=== PATIENT | female | born 1940 | race Caucasian/White ===

== ENCOUNTER 2017-06-26 19:10 | Emergency (ER) | payer MEDICARE, BC ==
[2017-06-26 19:17] VITALS: BP 125/70
--- NOTE | 2017-06-26 20:02 | EDM.PDOC ---
ED HPI GENERAL MEDICAL PROBLEM - General Chief Complaint: Upper Extremity Injury/Pain Stated Complaint: right wrist, elbow, and hip pain Time Seen by Provider: 06/26/17 19:28 Source of Information: Reports: Patient History Limitations: Reports: No Limitations - History of Present Illness INITIAL COMMENTS - FREE TEXT/NARRATIVE: Patient is a 76 year old female who presents to the ER with right wrist, right elbow, and right hip pain following a fall. Patient reports she was having lunch at the [employer] earlier today around 1345. She reached to grab the door and started falling backwards. She reports she landed on her right hip and is unsure how she landed on her right arm. She reports she initially was feeling ok, but throughout the day she had increased pain to her right wrist, prompting her ER visit. She also reported she had some numbness and tingling in her fingers initially. At time of ER presentation, she reports resolution of the numbness and tingling, but does have a "weird" sensation to her finger tips. She denies any dizziness, lightheadedness, or LOC prior to fall. No other associated symptoms. Onset: Today Onset Date: 06/26/17 Onset Time: 13:45 Location: Reports: Upper Extremity, Right, Lower Extremity, Right Severity: Moderate Associated Symptoms: Reports: No Other Symptoms. Denies: Confusion, Chest Pain , Diaphoresis, Fever/Chills, Headaches, Nausea/Vomiting, Rash, Seizure, Shortness of Breath, Syncope, Weakness Right Wrist Pain Score (Numeric/FACES): 7 - Related Data Allergies Allergy/AdvReac Type Severity Reaction Status Date / Time No Known Allergies Allergy Verified 06/26/17 19:17 Home Meds: Home Meds Acetaminophen [Tylenol Extra Strength] 1,000 mg PO Q6H PRN 05/27/14 [History] Ibuprofen 800 mg PO Q6H PRN 05/27/14 [History] Multivitamin [Daily Vitamin] 3 tab PO DAILY 05/27/14 [History] Pantoprazole Sodium 40 mg PO DAILY 05/27/14 [History] Temazepam 30 mg PO BEDTIME 05/27/14 [History] Levothyroxine Sodium 150 mcg PO DAILY 12/04/15 [History] Aspirin [Ecotrin] 650 mg PO DAILY 02/26/16 [History] Oxybutynin Chloride 5 mg PO DAILY 02/26/16 [History] Ascorbate Calcium [Vitamin C] 1,500 mg PO DAILY 06/26/17 [History] Calcium Carbonate [Calcium] 1,500 mg PO DAILY 06/26/17 [History] Cephalexin [Keflex] 250 mg PO DAILY 06/26/17 [History] Cholecalciferol (Vitamin D3) [Vitamin D3] 5,000 unit PO DAILY 06/26/17 [History] Formula A D 4 tab PO DAILY 06/26/17 [History] Lutein 40 mg PO DAILY 06/26/17 [History] Torsemide [Torsemide] 20 mg PO DAILY 06/26/17 [History] Vit A/C/E/Zinc/Selenium/Copper [Vision Formula Tablet] 4 each PO DAILY 06/26/17 [History] Past Medical History HEENT History: Reports: Hard of Hearing Cardiovascular History: Reports: High Cholesterol, Hypertension Gastrointestinal History: Reports: Chronic Constipation, Chronic Diarrhea, Colon Polyp, Diverticulosis, GERD Musculoskeletal History: Reports: Arthritis Neurological History: Reports: MS Psychiatric History: Reports: Anxiety Endocrine/Metabolic History: Reports: Hypothyroidism - Past Surgical History HEENT Surgical History: Reports: Cataract Surgery Female Surgical History: Reports: Hysterectomy Endocrine Surgical History: Reports: Thyroidectomy Musculoskeletal Surgical History: Reports: Joint Replacement Social & Family History - Tobacco Use Smoking Status *Q: Never Smoker Second Hand Smoke Exposure: No - Caffeine Use Caffeine Use: Reports: None - Recreational Drug Use Recreational Drug Use: No Review of Systems - Review of Systems Review Of Systems: ROS reveals no pertinent complaints other than HPI. Constitutional: Reports: No Symptoms Respiratory: Reports: No Symptoms Cardiovascular: Reports: No Symptoms Musculoskeletal: Reports: Arm Pain (right), Joint Pain (right hip and elbow pain ) Neurological: Reports: No Symptoms (numbness & tingling resolved to RUE) ED EXAM, GENERAL - Physical Exam Exam: See Below Exam Limited By: No Limitations General Appearance: Alert, WD/WN, No Apparent Distress Head: Atraumatic, Normocephalic Neck: Normal Inspection, Supple, Non-Tender, Full Range of Motion Respiratory/Chest: No Respiratory Distress, Lungs Clear, Normal Breath Sounds, No Accessory Muscle Use, Chest Non-Tender Cardiovascular: Normal Peripheral Pulses, Regular Rate, Rhythm, No Edema, No Gallop, No JVD, No Murmur, No Rub Peripheral Pulses: 2+: Radial (L), Radial (R), Dorsalis Pedis (L), Dorsalis Pedis (R) Extremities: Normal Inspection, Normal Range of Motion (normal flexion & extension of right wrist, elbow, & hip, pronation & supination limited due to pain), No Pedal Edema, Normal Capillary Refill (cap refill < 2 seconds to RUE), Joint Swelling (minimal swelling to right wrist), Arm Pain (to right wrist, right elbow, & right hip ), Leg Pain (right hip pain), Other (tenderness over carpal bones on right wrist, tenderness to anterior right hip, no external rotation of right hip, no leg shortening). No: Pedal Edema, Slow Capillary Refill, Limited Range of Motion, Increased Warmth, Mottled, Pallor, Redness Neurological: Alert, Oriented, CN II-XII Intact, Normal Cognition, Normal Gait, Normal Reflexes, No Motor/Sensory Deficits Skin Exam: Warm, Dry, Intact, Normal Color, No Rash. No: Ecchymosis, Erythema Course - Vital Signs Last Recorded V/S: Last Vital Signs Temp 98 F 06/26/17 19:13 Pulse 84 06/26/17 19:13 Resp 16 06/26/17 19:13 BP 125/70 06/26/17 19:13 Pulse Ox 98 06/26/17 19:13 - Orders/Labs/Meds Orders: Active Orders 24 hr Category Date Time Status Elbow 2V Rt [CR] Stat Exams 06/26/17 19:28 Taken Hip Min 2V or 3V w Pelvis Rt [CR] Stat Exams 06/26/17 19:54 Ordered Wrist Comp Min 3V Rt [CR] Stat Exams 06/26/17 19:26 Taken Departure - Departure Time of Disposition: 20:37 Disposition: Home, Self-Care 01 Condition: Good Clinical Impression: Right wrist sprain, Hip pain, right - Discharge Information Instructions: Fall Prevention in the Home, [id number], Hip Pain, Wrist Sprain Referrals: Bunny Talavera MD [Primary Care Provider] - Forms: ED Department Discharge Additional Instructions: Right wrist splinted. Rest, ice, and elevate affected areas (right wrist, elbow , & hip). Tylenol as needed for pain. Follow up with primary care provider to discuss final radiology reports. Return to ER if symptoms worsen or do not improve. - Problem List & Annotations (1) Strain of wrist, right SNOMED Code(s): 384553153 Code(s): S66.911A - STRAIN OF UNSP MUSC/FASC/TEND AT WRS/HND LV, R HAND, INIT Status: Acute Current Visit: Yes Qualifiers: Encounter type: initial encounter Qualified Code(s): S66.911A - Strain of unspecified muscle, fascia and tendon at wrist and hand level, right hand, initial encounter (2) Hip pain, right SNOMED Code(s): 80047781 Code(s): M25.551 - PAIN IN RIGHT HIP Status: Acute Current Visit: Yes - Problem List Review Problem List Initiated/Reviewed/Updated: Yes - My Orders Last 24 Hours: My Active Orders 06/26/17 19:54 Hip Min 2V or 3V w Pelvis Rt [CR] Stat - Assessment/Plan Last 24 Hours: My Active Orders 06/26/17 19:54 Hip Min 2V or 3V w Pelvis Rt [CR] Stat Plan: Right wrist splinted. Rest, ice, and elevate affected areas (right wrist, elbow , & hip). Tylenol as needed for pain. Follow up with primary care provider to discuss final radiology reports. Return to ER if symptoms worsen or do not improve.
== END 2017-06-26 20:55 | disposition home or self-care (01) ==
LOC: CC.ED 19:10
DX: S63.501A Unspecified sprain of right wrist, initial encounter (principal); M25.551 Pain in right hip; I10 Essential (primary) hypertension; E78.00 Pure hypercholesterolemia, unspecified; M19.90 Unspecified osteoarthritis, unspecified site; K21.9 Gastro-esophageal reflux disease without esophagitis; E03.9 Hypothyroidism, unspecified; Z90.710 Acquired absence of both cervix and uterus; Z98.890 Other specified postprocedural states; Z98.49 Cataract extraction status, unspecified eye; Z79.82 Long term (current) use of aspirin; Z79.899 Other long term (current) drug therapy; W19.XXXA Unspecified fall, initial encounter
CPT/HCPCS: 29125; 73070-RT; 73110-RT; 99283

== ENCOUNTER 2017-08-29 14:55 | Inpatient (IN) | payer MEDICARE, BC ==
[2017-08-29] MEDS ORDERED: Ondansetron 4 MG/2 ML SDV IV PRN (15:19)
[2017-08-29] MEDS ORDERED: Temazepam 15 MG Cap PO PRN (15:19)
[2017-08-29] MEDS ORDERED: Magnesium Hydroxide 400 MG/5 ML Susp 30 ML Cup PO PRN (15:19)
[2017-08-29] MEDS ORDERED: Piperacillin/Tazobactam 3.375 GM in Sodium Chloride 0.9% 50 ML IV SCH (15:30)
[2017-08-29 15:51] LABS: CHLORIDE,CL 104 mEq/L (98-106); SODIUM,NA 143 mEq/L (136-145)
[2017-08-29] MEDS: Enoxaparin 30 MG/0.3 ML Syringe SUBCUT SCH (16:34)
[2017-08-29] MEDS: Acetaminophen 500 MG Tab PO PRN (18:50)
[2017-08-29] MEDS: Piperacillin/Tazobactam 2.25 GM in Sodium Chloride 0.9% 50 ML IV SCH ×2 (19:17→23:50)
[2017-08-29] MEDS: traZODone 50 MG Tab PO PRN (20:02)
[2017-08-29] MEDS: Multivitamin Tab PO SCH (20:02)
[2017-08-29] MEDS: Ibuprofen 200 MG Tab PO PRN (23:56)
[2017-08-30] MEDS: Piperacillin/Tazobactam 2.25 GM in Sodium Chloride 0.9% 50 ML IV SCH ×4 (00:24→18:56)
[2017-08-30] MEDS: Pantoprazole 40 MG Tab.CR PO SCH (08:00)
[2017-08-30] MEDS: Oxybutynin 5 MG Tab PO SCH (08:00)
[2017-08-30] MEDS: Calcium Carbonate 500 MG Tab.Chew PO SCH (08:00)
[2017-08-30] MEDS: Torsemide 20 MG Tab PO SCH (08:00)
[2017-08-30] MEDS: Cholecalciferol (Vitamin D3) 1,000 Unit Tab PO SCH (08:00)
[2017-08-30] MEDS: Levothyroxine 150 MCG Tab PO SCH (08:00)
[2017-08-30] MEDS: Aspirin 325 MG Tab.EC PO SCH (08:00)
[2017-08-30] MEDS: Multivitamin Tab PO SCH ×2 (08:00→18:59)
[2017-08-30] MEDS ORDERED: methylPREDNISolone Sodium Succinate 125 MG/2 ML SDV IVPUSH ONE (14:00)
[2017-08-30] MEDS: LUTEIN 40 MG PO SCH (15:02)
[2017-08-30] MEDS: Enoxaparin 30 MG/0.3 ML Syringe SUBCUT SCH (15:23)
[2017-08-30] MEDS ORDERED: metroNIDAZOLE 500 MG Tab PO SCH (16:15)
[2017-08-30] MEDS: metroNIDAZOLE 500 MG Tab PO SCH (16:40)
[2017-08-30] MEDS ORDERED: Hyoscyamine 0.125 MG Tab.SL SL PRN (17:52)
[2017-08-30] MEDS: traZODone 50 MG Tab PO PRN (18:59)
[2017-08-30] MEDS: Acetaminophen 500 MG Tab PO PRN (18:59)
[2017-08-31] MEDS: Piperacillin/Tazobactam 2.25 GM in Sodium Chloride 0.9% 50 ML IV SCH ×5 (00:22→23:46)
[2017-08-31] MEDS: Ibuprofen 200 MG Tab PO PRN (00:30)
[2017-08-31] MEDS: Levothyroxine 150 MCG Tab PO SCH (07:42)
[2017-08-31] MEDS: Aspirin 325 MG Tab.EC PO SCH (07:42)
[2017-08-31] MEDS: Oxybutynin 5 MG Tab PO SCH (07:42)
[2017-08-31] MEDS: Cholecalciferol (Vitamin D3) 1,000 Unit Tab PO SCH (07:42)
[2017-08-31] MEDS: Multivitamin Tab PO SCH ×2 (07:42→20:02)
[2017-08-31] MEDS: Pantoprazole 40 MG Tab.CR PO SCH (07:42)
[2017-08-31] MEDS: Calcium Carbonate 500 MG Tab.Chew PO SCH (07:43)
[2017-08-31] MEDS: metroNIDAZOLE 500 MG Tab PO SCH ×3 (07:43→17:34)
[2017-08-31] MEDS: Torsemide 20 MG Tab PO SCH (07:43)
[2017-08-31] MEDS: LUTEIN 40 MG PO SCH (07:43)
--- NOTE | 2017-08-31 08:20 | PN ---
DATE: 08/30/2017 S: Anastasiya Marcano is in with [id number] cellulitis of both lower extremities. O: EXTREMITIES: On examination, cellulitis is improved, at least 40%. There is no edema. ASSESSMENT: CELLULITIS, POSSIBLE MRSA. P: Continue IV vancomycin. LCARKE/NAIN /[id number]
--- NOTE | 2017-08-31 11:59 | PN ---
DATE: 08/31/2017 S: Anastasiya Marcano is in with cellulitis of her both lower extremities. O: GENERAL: The patient is alert and orientated. VITAL SIGNS: As noted. EXTREMITIES: Cellulitis is receding nicely. ASSESSMENT: CELLULITIS. P: Continue IV vancomycin. CLARKE/NAIN /[id number]
[2017-08-31] MEDS: Enoxaparin 30 MG/0.3 ML Syringe SUBCUT SCH (15:15)
[2017-08-31] MEDS: Acetaminophen 500 MG Tab PO PRN (20:02)
[2017-08-31] MEDS: traZODone 50 MG Tab PO PRN (20:26)
[2017-09-01] MEDS: Piperacillin/Tazobactam 2.25 GM in Sodium Chloride 0.9% 50 ML IV SCH (05:32)
[2017-09-01] MEDS: Torsemide 20 MG Tab PO SCH (07:46)
[2017-09-01] MEDS: Pantoprazole 40 MG Tab.CR PO SCH (07:46)
[2017-09-01] MEDS: Aspirin 325 MG Tab.EC PO SCH (07:47)
[2017-09-01] MEDS: Calcium Carbonate 500 MG Tab.Chew PO SCH (07:47)
[2017-09-01] MEDS: Oxybutynin 5 MG Tab PO SCH (07:48)
--- NOTE | 2017-09-01 07:48 | PCM.DCSUM1 ---
Discharge Summary - Discharge Data Discharge Date: 09/01/17 Discharge Disposition: Home, Self-Care 01 Condition: Good - Discharge Diagnosis/Problem(s) (1) UTI (urinary tract infection) due to Enterococcus SNOMED Code(s): 974276375811449 ICD Code: N39.0 - URINARY TRACT INFECTION, SITE NOT SPECIFIED; B95.2 - ENTEROCOCCUS THE CAUSE OF DISEASES CLASSIFIED ELSEWHERE Status: Acute Priority: High (2) C. difficile diarrhea SNOMED Code(s): 8027868655711 ICD Code: A04.72 - ENTEROCOLITIS D/T CLOSTRIDIUM DIFFICILE, NOT SPCF RECUR Status: Acute Priority: High (3) Cellulitis of left leg SNOMED Code(s): 028610685 ICD Code: L03.116 - CELLULITIS OF LEFT LOWER LIMB Status: Acute Priority : High - Patient Summary/Data Consults: Consultations 08/29/17 15:19 PT Evaluation and Treatment [CONS] Routine Hospital Course: Patient was admitted to the hospital from the clinic on 08/29/17. She was originally seen in the clinic on 08/12/17 for BLE cellulitis. She was started on Ceftin. At time of admission she had been on 17 days of antibiotics. She reported she had not had improvement in the redness in her left leg, but the right leg had improved. She noted increased swelling and pain in her left leg. US was completed of LLE and was negative for DVT. Patient was started on Vancomycin and Zosyn. Throughout hospital stay, patients swelling decreased and her redness improved in her left leg. At time of discharge, color and swelling of left leg had returned to baseline. She was up ambulating without difficulty. She reports pain had improved. Upon admission, patient also reported loose watery stools. Cdiff and stool culture was collected. C Diff was positive. Patient was started on oral Flagyl. At time of discharge patient reported her stool frequency and volume had decreased drastically. Patient will continue oral Flagyl for 10 day total. UA was also collected on admission. UA was positive. Urine culture showed enterococcus, sensitive to Vanco. Patient will be sent home on 10 days of Zyvox. Patient will follow up in the clinic with Dr. Talavera on 09/07/2017. - Patient Instructions Diet: Usual Diet as Tolerated Activity: As Tolerated Notify Provider of: Fever, Increased Pain, Swelling and Redness, Drainage, Nausea and/or Vomiting - Discharge Plan Prescriptions/Med Rec: Linezolid [Zyvox] 600 mg PO Q12H 10 Days #20 tablet metroNIDAZOLE [Flagyl] 500 mg PO TIDMEALS 8 Days #24 tablet Home Medications: Home Meds Acetaminophen [Tylenol Extra Strength] 1,000 mg PO Q6H PRN 05/27/14 [History] Ibuprofen 800 mg PO Q6H PRN 05/27/14 [History] Multivitamin [Daily Vitamin] 3 tab PO BID 05/27/14 [History] Pantoprazole Sodium 40 mg PO DAILY 05/27/14 [History] Levothyroxine Sodium 150 mcg PO DAILY 12/04/15 [History] Aspirin [Ecotrin] 650 mg PO DAILY 02/26/16 [History] Ascorbate Calcium [Vitamin C] 1,500 mg PO DAILY 06/26/17 [History] Calcium Carbonate [Calcium] 3,000 mg PO DAILY 06/26/17 [History] Cholecalciferol (Vitamin D3) [Vitamin D3] 5,000 unit PO DAILY 06/26/17 [History] Lutein 40 mg PO DAILY 06/26/17 [History] Torsemide 20 mg PO DAILY 06/26/17 [History] Vit A/C/E/Zinc/Selenium/Copper [Vision Formula Tablet] 4 each PO DAILY 06/26/17 [History] Cyanocobalamin/FA/Pyridoxine [Homocysteine Formula] 8 each PO DAILY 08/29/17 [ History] Hyoscyamine Sulfate 0.125 mg PO QID PRN 08/29/17 [History] Magnesium 3 mg PO DAILY 08/29/17 [History] traZODone HCl [Trazodone HCl] 50 mg PO BEDTIME PRN 08/29/17 [History] Linezolid [Zyvox] 600 mg PO Q12H 10 Days #20 tablet 09/01/17 [Rx] Oxybutynin Chloride [Ditropan Xl] 10 mg PO DAILY 09/01/17 [History] metroNIDAZOLE [Flagyl] 500 mg PO TIDMEALS 8 Days #24 tablet 09/01/17 [Rx] Patient Handouts: Clostridium Difficile Infection, Cellulitis, Adult, Easy-to- Read, Urinary Tract Infection, Adult Referrals: Bunny Talavera MD [Primary Care Provider] - - Discharge Summary/Plan Comment Discharge Summary/Plan Comment: Patient will be discharged home on 10 additional days of Zyvox for UTI and cellulitis, as well as oral Flagyl for C diff. Patient will follow up in clinic with Dr. Talavera on Tuesday09/07/17. - General Info Date of Service: 09/01/17 Admission Dx/Problem (Free Text: LLE Cellulitis Subjective Update: Patient reports she is feeling much better. She reports pain and swelling of left lower extremity have improved. Redness has resolved. She has been up ambulating. She feels ready for discharge. She reports her diarrhea has improved. Denies urinary symptoms. Functional Status: Reports: Pain Controlled, Tolerating Diet, Ambulating, Urinating. Denies: New Symptoms - Review of Systems General: Reports: No Symptoms. Denies: Fever, Weakness, Fatigue, Chills HEENT: Reports: No Symptoms Pulmonary: Reports: No Symptoms Cardiovascular: Reports: Edema (improved). Denies: Chest Pain, Palpitations, Dyspnea on Exertion, Lightheadedness Gastrointestinal: Reports: Diarrhea (decreasing frequency and volume). Denies: Abdominal Pain, Decreased Appetite, Hematochezia, Melena, Nausea, Vomiting Genitourinary: Reports: No Symptoms. Denies: Dysuria, Frequency, Burning, Urgency, Hematuria Musculoskeletal: Reports: Leg Pain (improved, LLE) Skin: Reports: No Symptoms Neurological: Reports: No Symptoms Psychiatric: Reports: No Symptoms - Patient Data Vitals - Most Recent: Last Vital Signs Temp 98.2 F 08/31/17 23:40 Pulse 94 08/31/17 20:00 Resp 18 08/31/17 20:00 BP 126/68 08/31/17 20:00 Pulse Ox 95 08/31/17 20:00 Weight - Most Recent: 191 lb 8 oz Lab Results - Last 24 hrs: Laboratory Results - last 24 hr 08/31/17 Range/Units 06:40 Sodium 143 (136-145) mEq/L Potassium 3.3 L (3.5-5.0) mEq/L Chloride 108 H (98-106) mEq/L Carbon Dioxide 29 (21-32) mmol/L BUN 23 H (7-18) mg/dL Creatinine 1.3 H (0.6-1.0) mg/dL Est Cr Clr Drug Dosing 34.16 mL/min Estimated GFR (MDRD) 40 L (>=60) mL/min Glucose 102 H (75-99) mg/dL Calcium 8.4 (8.4-10.1) mg/dL C-Reactive Protein 9.0 H (0.2-0.8) mg/dL JANIE Results - Last 24 hrs: Microbiology 08/29/17 16:10 Urine Culture - Final Urine, Clean Catch Enterococcus Faecium Med Orders - Current: Current Medications Acetaminophen (Tylenol Extra Strength) 1,000 mg PO Q6H PRN PRN Reason: Pain/Fever Last Admin: 08/31/17 20:02 Dose: 1,000 mg Aspirin (Ecotrin) 650 mg PO DAILY [facility] Last Admin: 08/31/17 07:42 Dose: 650 mg Calcium Carbonate/Glycine (Tums) 3,000 mg PO DAILY [facility] Last Admin: 08/31/17 07:43 Dose: 3,000 mg Cholecalciferol (Vitamin D3) 5,000 units PO DAILY [facility] Last Admin: 08/31/17 07:42 Dose: 5,000 units Enoxaparin Sodium (Lovenox) 30 mg SUBCUT Q24H [facility] Last Admin: 08/31/17 15:15 Dose: 30 mg Vancomycin HCl 1 gm/ Sodium (Chloride) 250 mls @ 167 mls/hr IV Q24H [facility] Last Admin: 08/31/17 15:55 Dose: 167 mls/hr Piperacillin Sod/Tazobactam (Sod 2.25 gm/ Sodium Chloride) 50 mls @ 100 mls/hr IV Q6H [facility] Last Admin: 09/01/17 05:32 Dose: 100 mls/hr Ibuprofen (Motrin) 800 mg PO Q6H PRN PRN Reason: Pain/Fever Last Admin: 08/31/17 00:30 Dose: 800 mg Levothyroxine Sodium (Levothyroxine) 150 mcg PO DAILY [facility] Last Admin: 08/31/17 07:42 Dose: 150 mcg Magnesium Hydroxide (Milk Of Magnesia) 30 ml PO Q12H PRN PRN Reason: Constipation Magnesium Oxide (Magnesium Oxide) 250 mg PO TIDMEALS [facility] Last Admin: 08/31/17 17:34 Dose: 250 mg Metronidazole (Flagyl) 500 mg PO TIDMEALS [facility] Last Admin: 08/31/17 17:34 Dose: 500 mg Multivitamins/Minerals/Vitamin C (Tab-A-Grace) 1 tab PO BID [facility] Last Admin: 08/31/17 20:02 Dose: 1 tab Ptom [Lutein] 40 Mg) 40 mg PO DAILY [facility] Last Admin: 08/31/17 07:43 Dose: Not Given Ondansetron HCl (Zofran) 4 mg IV Q6H PRN PRN Reason: Nausea/Vomiting Oxybutynin Chloride (Oxybutynin) 10 mg PO DAILY [facility] Last Admin: 08/31/17 07:42 Dose: 10 mg Pantoprazole Sodium (Protonix) 40 mg PO DAILY [facility] Last Admin: 08/31/17 07:42 Dose: 40 mg Temazepam (Restoril) 15 mg PO BEDTIME PRN PRN Reason: Sleep Last Admin: 08/31/17 00:31 Dose: 15 mg Torsemide (Demadex) 20 mg PO DAILY [facility] Last Admin: 08/31/17 07:43 Dose: 20 mg Trazodone HCl (Trazodone) 50 mg PO BEDTIME PRN PRN Reason: Insomnia Last Admin: 08/31/17 20:26 Dose: 50 mg Vancomycin HCl (Pharmacy To Dose - Vancomycin) 1 dose .XX ASDIRECTED [facility] Discontinued Medications Hyoscyamine (Hyomax-Sl) 0.125 mg SL QID PRN PRN Reason: Diarrhea Methylprednisolone Sodium Succinate (Solu-Medrol) 125 mg IVPUSH ONETIME ONE Stop: 08/30/17 14:01 Last Admin: 08/30/17 15:24 Dose: 125 mg - Exam Quality Assessment: Reports: DVT Prophylaxis General: Reports: Alert, Oriented, No Acute Distress Neck: Reports: Supple Lungs: Reports: Clear to Auscultation, Normal Respiratory Effort Cardiovascular: Reports: Regular Rate, Regular Rhythm GI/Abdominal Exam: Normal Bowel Sounds, Soft, Non-Tender, No Organomegaly, No Distention, No Abnormal Bruit, No Mass, Pelvis Stable Extremities: Normal Inspection, Normal Range of Motion, Non-Tender, Normal Capillary Refill, Redness (improved), Other (swelling to upper portion of LLE). No: Increased Warmth Skin: Reports: Warm, Dry, Intact Neurological: Reports: No New Focal Deficit Psy/Mental Status: Reports: Alert, Normal Affect, Normal Mood *Q Meaningful Use (DIS) - VTE *Q VTE Criteria *Q: - Stroke *Q Stroke Criteria *Q: - AMI *Q AMI Criteria *Q:
[2017-09-01] MEDS: Cholecalciferol (Vitamin D3) 1,000 Unit Tab PO SCH (07:49)
[2017-09-01] MEDS: Levothyroxine 150 MCG Tab PO SCH (07:49)
[2017-09-01] MEDS: metroNIDAZOLE 500 MG Tab PO SCH (07:49)
[2017-09-01] MEDS: Multivitamin Tab PO SCH (07:50)
[2017-09-01] MEDS: LUTEIN 40 MG PO SCH (07:51)
[2017-09-01 08:46] VITALS: BP 110/70
== END 2017-09-01 11:00 | disposition home or self-care (01) | DRG 603 ==
LOC: CC.MS 14:55 → UNDOADMIN 14:55 → CC.MS 15:19
PROVIDERS: ADMIT Nurse Practitioner Family; ATTEND General Practice
DX: L03.116 Cellulitis of left lower limb (principal); N39.0 Urinary tract infection, site not specified; A04.72 Enterocolitis due to Clostridium difficile, not specified as recurrent; R19.7 Diarrhea, unspecified; R32 Unspecified urinary incontinence; I12.9 Hypertensive chronic kidney disease with stage 1 through stage 4 chronic kidney disease, or unspecified chronic kidney disease; N18.9 Chronic kidney disease, unspecified; R35.0 Frequency of micturition; I87.2 Venous insufficiency (chronic) (peripheral); M32.9 Systemic lupus erythematosus, unspecified; M06.9 Rheumatoid arthritis, unspecified; G35 Multiple sclerosis; E78.5 Hyperlipidemia, unspecified; Z79.82 Long term (current) use of aspirin; Z79.899 Other long term (current) drug therapy; Z85.850 Personal history of malignant neoplasm of thyroid
CPT/HCPCS: 36415; 80048; 80053; 81001; 82550; 83735; 84443; 85025; 85379; 85651; 86140; 87086; 87088; 87186; 87493; 93971-LT; 97161-GP; A9270-GY; J1650; J2543; J2930; J3370; J7050

== ENCOUNTER 2019-03-23 15:58 | Inpatient (IN) | payer MEDICARE, BC ==
[2019-03-23] MEDS ORDERED: Docusate Sodium 100 MG Cap PO PRN (16:11)
[2019-03-23] MEDS ORDERED: Acetaminophen 325 MG Tab PO PRN (16:11)
[2019-03-23] MEDS ORDERED: Ibuprofen 200 MG Tab PO PRN (16:11)
[2019-03-23] MEDS ORDERED: Temazepam 15 MG Cap PO PRN (16:11)
[2019-03-23] MEDS ORDERED: Sodium Chloride 0.9% 10 ML Syringe FLUSH PRN (16:11)
[2019-03-23] MEDS ORDERED: Polyethylene Glycol 3350 Powder 17 GM Packet PO PRN (16:11)
[2019-03-23] MEDS ORDERED: Clindamycin Phosphate in D5W 300 MG in Premix Bag 1 BAG IV SCH ×2 (16:15)
[2019-03-23 16:50] LABS: CHLORIDE,CL 107 mEq/L (98-106); SODIUM,NA 143 mEq/L (136-145)
[2019-03-23] MEDS ORDERED: Furosemide 40 MG/4 ML VIAL IVPUSH SCH (17:00)
[2019-03-23] MEDS: Enoxaparin 40 MG/0.4 ML Syringe SUBCUT SCH (18:40)
[2019-03-23] MEDS ORDERED: Non-Formulary Medication 1 Each (Ibuprofen [Ibuprofen] 800 MG) PO PRN (21:30)
[2019-03-23] MEDS ORDERED: Furosemide 40 MG Tab PO PRN (21:30)
[2019-03-23] MEDS ORDERED: HYOSCYAMINE SULFATE 0.125 MG SL PRN (21:30)
[2019-03-23] MEDS ORDERED: Gabapentin 100 MG Cap PO PRN (21:30)
[2019-03-23] MEDS ORDERED: Non-Formulary Medication 1 Each (Estradiol [Estrace 0.01% Vaginal Crm] 1 APPLIC) VAG SCH (21:30)
[2019-03-23] MEDS: traZODone 50 MG Tab PO PRN (23:09)
[2019-03-23] MEDS: Clindamycin Phosphate in D5W 300 MG in Premix Bag 1 BAG IV SCH ×2 (23:19)
[2019-03-24] MEDS: Clindamycin Phosphate in D5W 300 MG in Premix Bag 1 BAG IV SCH ×6 (06:08→18:11)
[2019-03-24 07:26] LABS: CHLORIDE,CL 108 mEq/L (98-106); SODIUM,NA 144 mEq/L (136-145)
[2019-03-24] MEDS: Hyoscyamine 0.125 MG Tab.SL SL SCH ×4 (07:48→19:41)
[2019-03-24] MEDS: Nitrofurantoin Monohydrate/Macrocrystalline 100 MG Cap PO SCH (07:49)
[2019-03-24] MEDS: atorvaSTATin 10 MG Tab PO SCH (07:49)
[2019-03-24] MEDS: Levothyroxine 150 MCG Tab PO SCH (07:49)
[2019-03-24] MEDS: Memantine 10 MG Tab PO SCH (07:50)
[2019-03-24] MEDS: Beta-Carotene (Vitamin A) w/Vitamin C & E plus Minerals Tab PO SCH ×2 (07:50→19:37)
[2019-03-24] MEDS: Ascorbic Acid 500 MG Tab PO SCH (07:51)
[2019-03-24] MEDS: Acetaminophen 500 MG Tab PO PRN ×2 (07:58→20:20)
[2019-03-24] MEDS ORDERED: [UNRECOGNIZED DRUG - OTHER] PO SCH (08:00)
[2019-03-24] MEDS: Calcium Carbonate 500 MG Tab.Chew PO SCH (08:00)
[2019-03-24] MEDS ORDERED: Cholecalciferol (Vitamin D3) 25 MCG Tab PO SCH (08:00)
[2019-03-24] MEDS ORDERED: LUTEIN 40 MG PO SCH (08:00)
[2019-03-24] MEDS ORDERED: CYANOCOBALAMIN PO SCH (08:00)
[2019-03-24] MEDS ORDERED: PYRIDOXINE PO SCH (08:00)
[2019-03-24] MEDS ORDERED: Multivitamin Tab PO SCH (08:00)
[2019-03-24] MEDS ORDERED: Pantoprazole 40 MG Tab.CR PO ONE (08:15)
--- NOTE | 2019-03-24 09:12 | PCM.PN ---
- General Info Date of Service: 03/24/19 Functional Status: Reports: Pain Controlled (improving today, RLE. ), Tolerating Diet, Ambulating, Urinating - Review of Systems General: Denies: Fever (No fever today 98.6. Yesterday fever at 1999 was 100.4. ) HEENT: Reports: No Symptoms Pulmonary: Reports: No Symptoms Cardiovascular: Reports: No Symptoms Gastrointestinal: Reports: No Symptoms Genitourinary: Reports: No Symptoms Musculoskeletal: Reports: No Symptoms Skin: Reports: Other (BLE redness, BLE edema.) Neurological: Reports: No Symptoms Psychiatric: Reports: No Symptoms - Patient Data Vitals - Most Recent: Last Vital Signs Temp 98.6 F 03/24/19 08:00 Pulse 88 03/24/19 08:00 Resp 20 03/24/19 08:00 BP 133/53 L 03/24/19 08:00 Pulse Ox 96 03/24/19 08:00 Weight - Most Recent: 207 lb 11.2 oz I&O - Last 24 Hours: Intake & Output 03/23/19 03/24/19 03/24/19 22:59 06:59 14:59 Intake Total 200 250 400 Output Total 3000 850 200 Balance -2800 -600 200 Lab Results Last 24 Hours: Laboratory Results - last 24 hr 03/23/19 03/23/19 03/24/19 Range/Units 16:30 16:30 07:00 WBC 10.0 7.8 (5.0-10.0) 10^3/uL RBC 3.79 L 3.58 L (4.00-5.50) 10^6/uL Hgb 11.6 L 10.8 L (12.0-16.0) g/dL Hct 36.8 L 34.6 L (37.0-47.0) % MCV 97.1 H 96.6 H (82.0-94.0) fL MCH 30.6 30.2 (27.0-32.0) pg MCHC 31.5 L 31.2 L (33.0-38.0) g/dL RDW Coeff of Senthil 13.4 13.6 (11.0-15.0) % Plt Count 234 218 (150-400) 10^3/uL Neut % (Auto) 62.3 62.7 (35-85) % Lymph % (Auto) 22.1 19.8 (10-55) % [place] % (Auto) 10.5 10.9 (0-16) % Eos % (Auto) 4.5 5.8 H (0-5) % Baso % (Auto) 0.6 0.8 (0-3) % Neut # (Auto) 6.23 4.91 (1.80-7.00) 10^3/uL Lymph # (Auto) 2.21 1.55 (1.00-4.80) 10^3/uL [place] # (Auto) 1.05 H 0.85 H (0.00-0.80) 10^3/uL Eos # (Auto) 0.45 0.45 (0.00-0.45) 10^3/uL Baso # (Auto) 0.06 0.06 10^3/uL Sodium 143 (136-145) mEq/L Potassium 3.9 (3.5-5.0) mEq/L Chloride 107 H (98-106) mEq/L Carbon Dioxide 28 (21-32) mmol/L BUN 22 H (7-18) mg/dL Creatinine 0.9 (0.6-1.0) mg/dL Est Cr Clr Drug Dosing TNP Estimated GFR (MDRD) > 60 (>=60) mL/min Glucose 99 (75-99) mg/dL Calcium 8.9 (8.4-10.1) mg/dL C-Reactive Protein 0.4 (0.2-0.8) mg/dL NT-Pro-B Natriuret Pep 134 (0-1000) pg/mL 03/24/19 Range/Units 07:00 WBC (5.0-10.0) 10^3/uL RBC (4.00-5.50) 10^6/uL Hgb (12.0-16.0) g/dL Hct (37.0-47.0) % MCV (82.0-94.0) fL MCH (27.0-32.0) pg MCHC (33.0-38.0) g/dL RDW Coeff of Senthil (11.0-15.0) % Plt Count (150-400) 10^3/uL Neut % (Auto) (35-85) % Lymph % (Auto) (10-55) % [place] % (Auto) (0-16) % Eos % (Auto) (0-5) % Baso % (Auto) (0-3) % Neut # (Auto) (1.80-7.00) 10^3/uL Lymph # (Auto) (1.00-4.80) 10^3/uL [place] # (Auto) (0.00-0.80) 10^3/uL Eos # (Auto) (0.00-0.45) 10^3/uL Baso # (Auto) 10^3/uL Sodium 144 (136-145) mEq/L Potassium 3.6 (3.5-5.0) mEq/L Chloride 108 H (98-106) mEq/L Carbon Dioxide 29 (21-32) mmol/L BUN 23 H (7-18) mg/dL Creatinine 0.9 (0.6-1.0) mg/dL Est Cr Clr Drug Dosing 45.92 Estimated GFR (MDRD) > 60 (>=60) mL/min Glucose 97 (75-99) mg/dL Calcium 8.5 (8.4-10.1) mg/dL C-Reactive Protein 0.4 (0.2-0.8) mg/dL NT-Pro-B Natriuret Pep (0-1000) pg/mL Med Orders - Current: Current Medications Acetaminophen (Tylenol) 650 mg PO Q4H PRN PRN Reason: Pain (Mild 1-3)/fever Last Admin: 03/23/19 20:52 Dose: 650 mg Acetaminophen (Tylenol Extra Strength) 1,000 mg PO Q6H PRN PRN Reason: Pain/Fever Last Admin: 03/24/19 07:58 Dose: 1,000 mg Ascorbic Acid (Vitamin C) 1,500 mg PO DAILY [facility] Last Admin: 03/24/19 07:51 Dose: 1,500 mg Atorvastatin Calcium (Lipitor) 10 mg PO DAILY [facility] Last Admin: 03/24/19 07:49 Dose: 10 mg Calcium Carbonate/Glycine (Tums) 3,000 mg PO DAILY [facility] Last Admin: 03/24/19 08:00 Dose: 3,000 mg Cholecalciferol (Vitamin D3) 250 mcg PO DAILY [facility] Docusate Sodium (Colace) 100 mg PO BID PRN PRN Reason: Constipation Enoxaparin Sodium (Lovenox) 40 mg SUBCUT Q24H [facility] Last Admin: 03/23/19 18:40 Dose: 40 mg Furosemide (Lasix) 40 mg IVPUSH Q24H [facility] Furosemide (Lasix) 40 mg PO DAILY PRN PRN Reason: Edema Gabapentin (Neurontin) 200 mg PO BEDTIME PRN PRN Reason: Other Hyoscyamine (Hyomax-Sl) 0.125 mg SL QID [facility] Last Admin: 03/24/19 07:48 Dose: 0.125 mg Clindamycin Phosphate 300 mg/ (Premix) 50 mls @ 100 mls/hr IV Q6H [facility] Last Admin: 03/24/19 06:08 Dose: 100 mls/hr Ibuprofen (Motrin) 400 mg PO Q6H PRN PRN Reason: Pain (mild 1-3) Levothyroxine Sodium (Levothyroxine) 150 mcg PO DAILY [facility] Last Admin: 03/24/19 07:49 Dose: 150 mcg Magnesium Oxide (Magnesium Oxide) 250 mg PO DAILY [facility] Last Admin: 03/24/19 07:50 Dose: 250 mg Memantine (Namenda) 10 mg PO DAILY [facility] Last Admin: 03/24/19 07:50 Dose: 10 mg Multivitamins/Minerals (Prosight) 2 tab PO BID [facility] Last Admin: 03/24/19 07:50 Dose: 2 tab Multivitamins/Minerals/Vitamin C (Tab-A-Grace) 3 tab PO BID [facility] Nitrofurantoin Macrocrystals (Macrobid) 100 mg PO DAILY [facility] Last Admin: 03/24/19 07:49 Dose: 100 mg Pantoprazole Sodium (Protonix) 40 mg PO BEDTIME [facility] Polyethylene Glycol (Miralax) 17 gm PO DAILY PRN PRN Reason: Constipation Sodium Chloride (Saline Flush) 10 ml FLUSH ASDIRECTED PRN PRN Reason: Keep Vein Open Trazodone HCl (Trazodone) 50 mg PO BEDTIME PRN PRN Reason: Insomnia Last Admin: 03/23/19 23:09 Dose: 50 mg Discontinued Medications Furosemide (Lasix) 40 mg IVPUSH Q24H [facility] Last Admin: 03/23/19 18:38 Dose: 40 mg Clindamycin Phosphate 300 mg/ (Premix) 50 mls @ 100 mls/hr IV Q6H [facility] Last Admin: 03/23/19 18:42 Dose: 100 mls/hr Non-Formulary Medication (Cyanocobalamin/Fa/Pyridoxine [Homocysteine Formula]) 3 tab PO BID [facility] Last Admin: 03/24/19 08:39 Dose: Not Given Non-Formulary Medication (Estradiol [Estrace 0.01% Vaginal Crm]) 1 applic VAG Q72H [facility] Last Admin: 03/24/19 08:39 Dose: Not Given Non-Formulary Medication (Hyoscyamine Sulfate [Hyoscyamine Sulfate]) 0.125 mg SL QID PRN PRN Reason: Diarrhea Non-Formulary Medication (Ibuprofen [Ibuprofen]) 800 mg PO Q6H PRN PRN Reason: Pain/Fever Non-Formulary Medication (Lutein [Lutein]) 40 mg PO DAILY [facility] Last Admin: 03/24/19 08:39 Dose: Not Given Pantoprazole Sodium (Protonix) 40 mg PO ONETIME ONE Stop: 03/24/19 08:16 Last Admin: 03/24/19 08:44 Dose: 40 mg Temazepam (Restoril) 15 mg PO BEDTIME PRN PRN Reason: Sleep - Exam General: Alert, Oriented, Cooperative, No Acute Distress Neck: Supple, Trachea Midline, No JVD, No Thyromegaly Lungs: Clear to Auscultation, Normal Respiratory Effort Cardiovascular: Regular Rate, Regular Rhythm, No Murmurs GI/Abdominal Exam: Normal Bowel Sounds, Soft, Non-Tender, No Organomegaly, No Distention, No Abnormal Bruit, No Mass, Pelvis Stable Back Exam: Normal Inspection, Full Range of Motion Extremities: Normal Capillary Refill, Pedal Edema (+2, but improved since yesterday report from provider. ), Increased Warmth (BLE both below knees, no feet. ), Redness (RLE mid hernandez to ankle. LLE mid hernandez anterior. Improved from yesterday. ) Peripheral Pulses: 2+: Posterior Tibial (L), Posterior Tibial (R), Dorsalis Pedis (L), Dorsalis Pedis (R) Skin: Warm, Dry, Other (small open wound RLE anterior hernandez. Erythema RLE below mid hernandez below knee to ankle circumfernetial, improved from yesterday. LLE erythmea left anterior hernandez circumferential. Improved from markings yesterday. ) Neurological: No New Focal Deficit Psy/Mental Status: Alert, Normal Affect, Normal Mood - Problem List Review Problem List Initiated/Reviewed/Updated: Yes - My Orders Last 24 Hours: My Active Orders 03/23/19 21:30 Acetaminophen [Tylenol Extra Strength] 1,000 mg PO Q6H PRN Furosemide [Lasix] 40 mg PO DAILY PRN Gabapentin [Neurontin] 200 mg PO BEDTIME PRN traZODone 50 mg PO BEDTIME PRN 03/24/19 08:00 Ascorbic Acid [Vitamin C] 1,500 mg PO DAILY Beta-Carotene(A) w/C & E/Min [Prosight] 2 tab PO BID Calcium Carbonate [Tums] 3,000 mg PO DAILY Cholecalciferol (Vitamin D3) [Vitamin D3] 250 mcg PO DAILY Hyoscyamine [Hyomax-SL] 0.125 mg SL QID Levothyroxine 150 mcg PO DAILY Magnesium Oxide 250 mg PO DAILY Memantine [Namenda] 10 mg PO DAILY Multivitamins [Tab-A-Grace] 3 tab PO BID Nitrofurantoin [place]/Macrocryst [Macrobid] 100 mg PO DAILY atorvaSTATin [Lipitor] 10 mg PO DAILY 03/24/19 20:00 Pantoprazole [ProTONIX] 40 mg PO BEDTIME - Plan Plan:: This patient is a 78 year old female that was admitted yesterday from clinic for BLE edema and cellulitis. Patient reports that she is supposed to take lasix. but does not take it all the time because she is constantly not home and it makes her go to the bathroom all the time. The patient reports that since being admitted that her legs are not as painful and to her do not look ass red. Patient BLE redness has decreased bilaterally, her edema is also down as well. The patient labs are unremarkable. Will continue with lasix and abx treatment. Plan is possible discharge Tuesday. Will evaluate again tomorrow.
[2019-03-24] MEDS: Furosemide 40 MG/4 ML VIAL IVPUSH SCH (09:30)
[2019-03-24] MEDS: Cholecalciferol (Vitamin D3) 25 MCG Tab PO SCH (11:59)
[2019-03-24] MEDS: Multivitamin Tab PO SCH ×2 (12:00→19:38)
[2019-03-24] MEDS: Enoxaparin 40 MG/0.4 ML Syringe SUBCUT SCH (16:48)
[2019-03-24] MEDS: Pantoprazole 40 MG Tab.CR PO SCH (19:38)
[2019-03-24] MEDS: traZODone 50 MG Tab PO PRN (20:21)
[2019-03-25] MEDS: Clindamycin Phosphate in D5W 300 MG in Premix Bag 1 BAG IV SCH ×10 (00:21→23:30)
[2019-03-25] MEDS: Acetaminophen 500 MG Tab PO PRN ×2 (02:46→20:02)
[2019-03-25] MEDS: Levothyroxine 150 MCG Tab PO SCH (07:35)
[2019-03-25] MEDS: Calcium Carbonate 500 MG Tab.Chew PO SCH (07:36)
[2019-03-25] MEDS: atorvaSTATin 10 MG Tab PO SCH (07:37)
[2019-03-25] MEDS: Nitrofurantoin Monohydrate/Macrocrystalline 100 MG Cap PO SCH (07:38)
[2019-03-25] MEDS: Memantine 10 MG Tab PO SCH (07:38)
[2019-03-25] MEDS: Beta-Carotene (Vitamin A) w/Vitamin C & E plus Minerals Tab PO SCH ×2 (07:39→19:58)
[2019-03-25] MEDS: Multivitamin Tab PO SCH ×2 (07:39→19:59)
[2019-03-25] MEDS: Ascorbic Acid 500 MG Tab PO SCH (07:40)
[2019-03-25] MEDS: Cholecalciferol (Vitamin D3) 25 MCG Tab PO SCH (07:41)
[2019-03-25] MEDS: Hyoscyamine 0.125 MG Tab.SL SL SCH ×4 (07:45→20:02)
[2019-03-25] MEDS: Furosemide 40 MG/4 ML VIAL IVPUSH SCH (08:55)
--- NOTE | 2019-03-25 11:15 | PCM.PN ---
- General Info Date of Service: 03/25/19 Functional Status: Reports: Pain Controlled, Tolerating Diet, Ambulating, Urinating Pain Score: 0 - Review of Systems General: Reports: No Symptoms HEENT: Reports: No Symptoms Pulmonary: Reports: No Symptoms Cardiovascular: Reports: No Symptoms Gastrointestinal: Reports: No Symptoms Genitourinary: Reports: No Symptoms Musculoskeletal: Reports: No Symptoms Skin: Reports: Other (Redness right anterior hernandez. Left anterior hernandez) Neurological: Reports: No Symptoms Psychiatric: Reports: No Symptoms - Patient Data Vitals - Most Recent: Last Vital Signs Temp 97.6 F 03/25/19 08:00 Pulse 75 03/25/19 08:00 Resp 20 03/25/19 08:00 BP 111/48 L 03/25/19 08:00 Pulse Ox 97 03/25/19 08:00 Weight - Most Recent: 206 lb 3.2 oz I&O - Last 24 Hours: Intake & Output 03/24/19 03/25/19 03/25/19 22:59 06:59 14:59 Intake Total 450 250 200 Output Total 600 250 850 Balance -150 0 -650 Lab Results Last 24 Hours: Laboratory Results - last 24 hr 03/25/19 03/25/19 Range/Units 07:00 07:00 WBC 7.7 (5.0-10.0) 10^3/uL RBC 3.72 L (4.00-5.50) 10^6/uL Hgb 11.3 L (12.0-16.0) g/dL Hct 36.2 L (37.0-47.0) % MCV 97.3 H (82.0-94.0) fL MCH 30.4 (27.0-32.0) pg MCHC 31.2 L (33.0-38.0) g/dL RDW Coeff of Senthil 13.7 (11.0-15.0) % Plt Count 228 (150-400) 10^3/uL Neut % (Auto) 57.4 (35-85) % Lymph % (Auto) 24.6 (10-55) % [place] % (Auto) 10.7 (0-16) % Eos % (Auto) 6.4 H (0-5) % Baso % (Auto) 0.9 (0-3) % Neut # (Auto) 4.40 (1.80-7.00) 10^3/uL Lymph # (Auto) 1.89 (1.00-4.80) 10^3/uL [place] # (Auto) 0.82 H (0.00-0.80) 10^3/uL Eos # (Auto) 0.49 H (0.00-0.45) 10^3/uL Baso # (Auto) 0.07 10^3/uL Sodium 142 (136-145) mEq/L Potassium 3.9 (3.5-5.0) mEq/L Chloride 106 (98-106) mEq/L Carbon Dioxide 32 (21-32) mmol/L BUN 26 H (7-18) mg/dL Creatinine 1.0 (0.6-1.0) mg/dL Est Cr Clr Drug Dosing 41.33 mL/min Estimated GFR (MDRD) 54 L (>=60) mL/min Glucose 103 H (75-99) mg/dL Calcium 8.9 (8.4-10.1) mg/dL C-Reactive Protein 0.4 (0.2-0.8) mg/dL Med Orders - Current: Current Medications Acetaminophen (Tylenol) 650 mg PO Q4H PRN PRN Reason: Pain (Mild 1-3)/fever Last Admin: 03/23/19 20:52 Dose: 650 mg Acetaminophen (Tylenol Extra Strength) 1,000 mg PO Q6H PRN PRN Reason: Pain/Fever Last Admin: 03/25/19 02:46 Dose: 1,000 mg Ascorbic Acid (Vitamin C) 1,500 mg PO DAILY [facility] Last Admin: 03/25/19 07:40 Dose: 1,500 mg Atorvastatin Calcium (Lipitor) 10 mg PO DAILY [facility] Last Admin: 03/25/19 07:37 Dose: 10 mg Calcium Carbonate/Glycine (Tums) 3,000 mg PO DAILY [facility] Last Admin: 03/25/19 07:36 Dose: 3,000 mg Cholecalciferol (Vitamin D3) 250 mcg PO DAILY [facility] Last Admin: 03/25/19 07:41 Dose: 250 mcg Docusate Sodium (Colace) 100 mg PO BID PRN PRN Reason: Constipation Enoxaparin Sodium (Lovenox) 40 mg SUBCUT Q24H [facility] Last Admin: 03/24/19 16:48 Dose: 40 mg Furosemide (Lasix) 40 mg IVPUSH Q24H [facility] Last Admin: 03/25/19 08:55 Dose: 40 mg Furosemide (Lasix) 40 mg PO DAILY PRN PRN Reason: Edema Gabapentin (Neurontin) 200 mg PO BEDTIME PRN PRN Reason: Other Hyoscyamine (Hyomax-Sl) 0.125 mg SL 0800,1200,1700,2000 [facility] Last Admin: 03/25/19 07:45 Dose: 0.125 mg Clindamycin Phosphate 300 mg/ (Premix) 50 mls @ 100 mls/hr IV Q6H [facility] Last Admin: 03/25/19 06:16 Dose: 100 mls/hr Ibuprofen (Motrin) 400 mg PO Q6H PRN PRN Reason: Pain (mild 1-3) Last Admin: 03/25/19 07:50 Dose: 400 mg Levothyroxine Sodium (Levothyroxine) 150 mcg PO DAILY [facility] Last Admin: 03/25/19 07:35 Dose: 150 mcg Magnesium Oxide (Magnesium Oxide) 250 mg PO DAILY [facility] Last Admin: 03/25/19 07:38 Dose: 250 mg Memantine (Namenda) 10 mg PO DAILY [facility] Last Admin: 03/25/19 07:38 Dose: 10 mg Multivitamins/Minerals (Prosight) 2 tab PO BID [facility] Last Admin: 03/25/19 07:39 Dose: 2 tab Multivitamins/Minerals/Vitamin C (Tab-A-Grace) 3 tab PO BID [facility] Last Admin: 03/25/19 07:39 Dose: 3 tab Nitrofurantoin Macrocrystals (Macrobid) 100 mg PO DAILY [facility] Last Admin: 03/25/19 07:38 Dose: 100 mg Pantoprazole Sodium (Protonix) 40 mg PO BEDTIME [facility] Last Admin: 03/24/19 19:38 Dose: 40 mg Polyethylene Glycol (Miralax) 17 gm PO DAILY PRN PRN Reason: Constipation Sodium Chloride (Saline Flush) 10 ml FLUSH ASDIRECTED PRN PRN Reason: Keep Vein Open Trazodone HCl (Trazodone) 50 mg PO BEDTIME PRN PRN Reason: Insomnia Last Admin: 03/24/19 20:21 Dose: 50 mg Discontinued Medications Cholecalciferol (Vitamin D3) 250 mcg PO DAILY [facility] Furosemide (Lasix) 40 mg IVPUSH Q24H [facility] Last Admin: 03/23/19 18:38 Dose: 40 mg Hyoscyamine (Hyomax-Sl) 0.125 mg SL QID [facility] Last Admin: 03/24/19 12:01 Dose: 0.125 mg Clindamycin Phosphate 300 mg/ (Premix) 50 mls @ 100 mls/hr IV Q6H [facility] Last Admin: 03/23/19 18:42 Dose: 100 mls/hr Multivitamins/Minerals/Vitamin C (Tab-A-Grace) 3 tab PO BID [facility] Non-Formulary Medication (Cyanocobalamin/Fa/Pyridoxine [Homocysteine Formula]) 3 tab PO BID [facility] Last Admin: 03/24/19 08:39 Dose: Not Given Non-Formulary Medication (Estradiol [Estrace 0.01% Vaginal Crm]) 1 applic VAG Q72H [facility] Last Admin: 03/24/19 08:39 Dose: Not Given Non-Formulary Medication (Hyoscyamine Sulfate [Hyoscyamine Sulfate]) 0.125 mg SL QID PRN PRN Reason: Diarrhea Non-Formulary Medication (Ibuprofen [Ibuprofen]) 800 mg PO Q6H PRN PRN Reason: Pain/Fever Non-Formulary Medication (Lutein [Lutein]) 40 mg PO DAILY [facility] Last Admin: 03/24/19 08:39 Dose: Not Given Pantoprazole Sodium (Protonix) 40 mg PO ONETIME ONE Stop: 03/24/19 08:16 Last Admin: 03/24/19 08:44 Dose: 40 mg Temazepam (Restoril) 15 mg PO BEDTIME PRN PRN Reason: Sleep - Exam General: Alert, Oriented, Cooperative, No Acute Distress Lungs: Clear to Auscultation, Normal Respiratory Effort Cardiovascular: Regular Rate, Regular Rhythm Back Exam: Normal Inspection, Full Range of Motion Extremities: Normal Range of Motion, Non-Tender, Normal Capillary Refill, Pedal Edema (+1 BLE, much improved. ), Redness (left anterior hernandez distal, right anterior hernandez distal. Very mild compared to yesterday and admit. Much improving. Mildly warm to touch. No drainage. Not circumferential.) Skin: Warm, Dry, Intact Neurological: No New Focal Deficit Psy/Mental Status: Alert, Normal Affect, Normal Mood - Problem List Review Problem List Initiated/Reviewed/Updated: Yes - My Orders Last 24 Hours: My Active Orders 03/24/19 11:45 Cholecalciferol (Vitamin D3) [Vitamin D3] 250 mcg PO DAILY Multivitamins [Tab-A-Grace] 3 tab PO BID 03/24/19 17:00 Hyoscyamine [Hyomax-SL] 0.125 mg SL 0800,1200,1700,2000 03/24/19 20:00 Pantoprazole [ProTONIX] 40 mg PO BEDTIME - Plan Plan:: 03/24/19 0800 This patient is a 78 year old female that was admitted yesterday from clinic for BLE edema and cellulitis. Patient reports that she is supposed to take lasix. but does not take it all the time because she is constantly not home and it makes her go to the bathroom all the time. The patient reports that since being admitted that her legs are not as painful and to her do not look ass red. Patient BLE redness has decreased bilaterally, her edema is also down as well. The patient labs are unremarkable. Will continue with lasix and abx treatment. Plan is possible discharge Tuesday. Will evaluate again tomorrow. 03/25/19 1100 This patient today reports she is feeling much better. She reports she has been able to get up to the bathroom and ambulate without difficulty. She reports her leg pain was much better. Her redness has significantly improved. We discussed her staying on her lasix at home and being compliant to help prevent this again in the future. The patient agrees that she will take her lasix at home. Labs are unremarkable today, BUN has crept up a little, but she is drinking well, and CR is wnl. Will continue the plan of abx and lasix today. Will recheck labs Tuesday morning. This patient should be discharged tomorrow home.
[2019-03-25] MEDS: Enoxaparin 40 MG/0.4 ML Syringe SUBCUT SCH (17:57)
[2019-03-25] MEDS: Pantoprazole 40 MG Tab.CR PO SCH (19:58)
[2019-03-25] MEDS: traZODone 50 MG Tab PO PRN (21:26)
[2019-03-26] MEDS: Clindamycin Phosphate in D5W 300 MG in Premix Bag 1 BAG IV SCH ×2 (05:58)
[2019-03-26 07:33] LABS: CHLORIDE,CL 107 mEq/L (98-106); SODIUM,NA 143 mEq/L (136-145)
[2019-03-26] MEDS: Levothyroxine 150 MCG Tab PO SCH (07:54)
[2019-03-26] MEDS: Furosemide 40 MG/4 ML VIAL IVPUSH SCH (07:55)
[2019-03-26] MEDS: atorvaSTATin 10 MG Tab PO SCH (07:55)
[2019-03-26] MEDS: Nitrofurantoin Monohydrate/Macrocrystalline 100 MG Cap PO SCH (07:55)
[2019-03-26] MEDS: Beta-Carotene (Vitamin A) w/Vitamin C & E plus Minerals Tab PO SCH (07:55)
[2019-03-26] MEDS: Cholecalciferol (Vitamin D3) 25 MCG Tab PO SCH (07:56)
[2019-03-26] MEDS: Calcium Carbonate 500 MG Tab.Chew PO SCH (07:58)
[2019-03-26] MEDS: Multivitamin Tab PO SCH (07:59)
[2019-03-26] MEDS: Memantine 10 MG Tab PO SCH (07:59)
[2019-03-26] MEDS: Ascorbic Acid 500 MG Tab PO SCH (08:00)
[2019-03-26] MEDS: Hyoscyamine 0.125 MG Tab.SL SL SCH (08:02)
[2019-03-26 08:40] VITALS: BP 113/55; PULSE 81
--- NOTE | 2019-03-26 08:44 | PCM.DCSUM1 ---
Discharge Summary - Hospital Course HPI Initial Comments: This patient is a 78 year old female that was admitted Tuesday for BLE cellulitis. Patient was placed on abx and lasix. Patient is noncompliant with lasix at home. The patient during her admission has shown significant improvement of her redness and swelling in both legs. The patient labs are unremarkable, her bun yesterday was 26, today 25. The patient reports she feels great and feels much better. She reports that she is ready to go home. - Discharge Data Discharge Date: 03/26/19 Discharge Disposition: Home, Self-Care 01 Condition: Good - Patient Instructions Diet: Low Sodium Activity: As Tolerated, Elevate Extremity Showering/Bathing: May Shower Notify Provider of: Fever, Increased Pain, Swelling and Redness, Drainage, Nausea and/or Vomiting - Discharge Plan *PRESCRIPTION DRUG MONITORING PROGRAM REVIEWED*: Not Applicable *COPY OF PRESCRIPTION DRUG MONITORING REPORT IN PATIENT SHERRY: Not Applicable Prescriptions/Med Rec: Clindamycin HCl [Cleocin HCl] 300 mg PO QID 4 Days #16 capsule Home Medications: Home Meds Acetaminophen [Tylenol Extra Strength] 1,000 mg PO Q6H PRN 05/27/14 [History] Ibuprofen 800 mg PO Q6H PRN 05/27/14 [History] Multivitamin [Daily Vitamin] 3 tab PO BID 05/27/14 [History] Pantoprazole Sodium 40 mg PO BEDTIME 05/27/14 [History] Levothyroxine Sodium 150 mcg PO DAILY 12/04/15 [History] Ascorbate Calcium [Vitamin C] 1,500 mg PO DAILY 06/26/17 [History] Calcium Carbonate [Calcium] 3,000 mg PO DAILY 06/26/17 [History] Cholecalciferol (Vitamin D3) [Vitamin D3] 10,000 unit PO DAILY 06/26/17 [History ] Lutein 40 mg PO DAILY 06/26/17 [History] Vit A/C/E/Zinc/Selenium/Copper [Vision Formula Tablet] 2 tab PO BID 06/26/17 [ History] Cyanocobalamin/FA/Pyridoxine [Homocysteine Formula] 3 tab PO BID 08/29/17 [ History] Hyoscyamine Sulfate 0.125 mg SL QID 08/29/17 [History] Magnesium 250 mg PO DAILY 08/29/17 [History] traZODone HCl [Trazodone HCl] 50 mg PO BEDTIME PRN 08/29/17 [History] Nitrofurantoin Monohyd/M-Cryst [Macrobid 100 mg Capsule] 100 mg PO DAILY [History] Estradiol [Estrace 0.01% Vaginal Crm] 1 applic VAG Q72H 03/23/19 [History] Furosemide 40 mg PO DAILY PRN 03/23/19 [History] Gabapentin [Neurontin] 100 - 200 mg PO BEDTIME PRN 03/23/19 [History] Memantine HCl 10 mg PO DAILY 03/23/19 [History] atorvaSTATin [Lipitor] 10 mg PO DAILY 03/23/19 [History] Clindamycin HCl [Cleocin HCl] 300 mg PO QID 4 Days #16 capsule 03/26/19 [Rx] Oxygen Therapy Mode: Room Air Patient Handouts: Lymphangitis, Adult, Cellulitis, Adult, [id number] - Discharge Summary/Plan Comment DC Time >30 min.: No - General Info Date of Service: 03/26/19 Functional Status: Reports: Pain Controlled, Tolerating Diet, Ambulating, Urinating - Review of Systems General: Reports: No Symptoms HEENT: Reports: No Symptoms Pulmonary: Reports: No Symptoms Cardiovascular: Reports: No Symptoms Gastrointestinal: Reports: No Symptoms Genitourinary: Reports: No Symptoms Musculoskeletal: Reports: No Symptoms Skin: Reports: Other (mild redness BLE anterior shins) Neurological: Reports: No Symptoms Psychiatric: Reports: No Symptoms - Patient Data Vitals - Most Recent: Last Vital Signs Temp 98.1 F 03/25/19 20:00 Pulse 85 03/25/19 20:00 Resp 20 03/25/19 20:00 BP 105/58 L 03/25/19 20:00 Pulse Ox 96 03/25/19 20:00 Weight - Most Recent: 204 lb 4.8 oz I&O - Last 24 hours: Intake & Output 03/25/19 03/26/19 03/26/19 22:59 06:59 14:59 Intake Total 350 250 Output Total 1150 300 Balance -800 -50 Lab Results - Last 24 hrs: Laboratory Results - last 24 hr 03/26/19 03/26/19 Range/Units 07:00 07:00 WBC 7.6 (5.0-10.0) 10^3/uL RBC 3.77 L (4.00-5.50) 10^6/uL Hgb 11.4 L (12.0-16.0) g/dL Hct 36.4 L (37.0-47.0) % MCV 96.6 H (82.0-94.0) fL MCH 30.2 (27.0-32.0) pg MCHC 31.3 L (33.0-38.0) g/dL RDW Coeff of Senthil 13.6 (11.0-15.0) % Plt Count 226 (150-400) 10^3/uL Neut % (Auto) 60.5 (35-85) % Lymph % (Auto) 21.3 (10-55) % [place] % (Auto) 10.6 (0-16) % Eos % (Auto) 6.9 H (0-5) % Baso % (Auto) 0.7 (0-3) % Neut # (Auto) 4.59 (1.80-7.00) 10^3/uL Lymph # (Auto) 1.61 (1.00-4.80) 10^3/uL [place] # (Auto) 0.80 (0.00-0.80) 10^3/uL Eos # (Auto) 0.52 H (0.00-0.45) 10^3/uL Baso # (Auto) 0.05 10^3/uL Sodium 143 (136-145) mEq/L Potassium 3.7 (3.5-5.0) mEq/L Chloride 107 H (98-106) mEq/L Carbon Dioxide 30 (21-32) mmol/L BUN 25 H (7-18) mg/dL Creatinine 0.9 (0.6-1.0) mg/dL Est Cr Clr Drug Dosing 45.92 mL/min Estimated GFR (MDRD) > 60 (>=60) mL/min Glucose 97 (75-99) mg/dL Calcium 9.0 (8.4-10.1) mg/dL C-Reactive Protein 0.5 (0.2-0.8) mg/dL Med Orders - Current: Current Medications Acetaminophen (Tylenol) 650 mg PO Q4H PRN PRN Reason: Pain (Mild 1-3)/fever Last Admin: 03/23/19 20:52 Dose: 650 mg Acetaminophen (Tylenol Extra Strength) 1,000 mg PO Q6H PRN PRN Reason: Pain/Fever Last Admin: 03/25/19 20:02 Dose: 1,000 mg Ascorbic Acid (Vitamin C) 1,500 mg PO DAILY [facility] Last Admin: 03/26/19 08:00 Dose: 1,500 mg Atorvastatin Calcium (Lipitor) 10 mg PO DAILY [facility] Last Admin: 03/26/19 07:55 Dose: 10 mg Calcium Carbonate/Glycine (Tums) 3,000 mg PO DAILY [facility] Last Admin: 03/26/19 07:58 Dose: 3,000 mg Cholecalciferol (Vitamin D3) 250 mcg PO DAILY [facility] Last Admin: 03/26/19 07:56 Dose: 250 mcg Docusate Sodium (Colace) 100 mg PO BID PRN PRN Reason: Constipation Enoxaparin Sodium (Lovenox) 40 mg SUBCUT Q24H [facility] Last Admin: 03/25/19 17:57 Dose: 40 mg Furosemide (Lasix) 40 mg IVPUSH Q24H [facility] Last Admin: 03/26/19 07:55 Dose: 40 mg Furosemide (Lasix) 40 mg PO DAILY PRN PRN Reason: Edema Gabapentin (Neurontin) 200 mg PO BEDTIME PRN PRN Reason: Other Hyoscyamine (Hyomax-Sl) 0.125 mg SL 0800,1200,1700,2000 [facility] Last Admin: 03/26/19 08:02 Dose: 0.125 mg Clindamycin Phosphate 300 mg/ (Premix) 50 mls @ 100 mls/hr IV Q6H [facility] Last Admin: 03/26/19 05:58 Dose: 100 mls/hr Ibuprofen (Motrin) 400 mg PO Q6H PRN PRN Reason: Pain (mild 1-3) Last Admin: 03/25/19 07:50 Dose: 400 mg Levothyroxine Sodium (Levothyroxine) 150 mcg PO DAILY [facility] Last Admin: 03/26/19 07:54 Dose: 150 mcg Magnesium Oxide (Magnesium Oxide) 250 mg PO DAILY [facility] Last Admin: 03/26/19 07:59 Dose: 250 mg Memantine (Namenda) 10 mg PO DAILY [facility] Last Admin: 03/26/19 07:59 Dose: 10 mg Multivitamins/Minerals (Prosight) 2 tab PO BID [facility] Last Admin: 03/26/19 07:55 Dose: 2 tab Multivitamins/Minerals/Vitamin C (Tab-A-Grace) 3 tab PO BID [facility] Last Admin: 03/26/19 07:59 Dose: 3 tab Nitrofurantoin Macrocrystals (Macrobid) 100 mg PO DAILY [facility] Last Admin: 03/26/19 07:55 Dose: 100 mg Pantoprazole Sodium (Protonix) 40 mg PO BEDTIME [facility] Last Admin: 03/25/19 19:58 Dose: 40 mg Polyethylene Glycol (Miralax) 17 gm PO DAILY PRN PRN Reason: Constipation Sodium Chloride (Saline Flush) 10 ml FLUSH ASDIRECTED PRN PRN Reason: Keep Vein Open Trazodone HCl (Trazodone) 50 mg PO BEDTIME PRN PRN Reason: Insomnia Last Admin: 03/25/19 21:26 Dose: 50 mg Discontinued Medications Cholecalciferol (Vitamin D3) 250 mcg PO DAILY [facility] Furosemide (Lasix) 40 mg IVPUSH Q24H [facility] Last Admin: 03/23/19 18:38 Dose: 40 mg Hyoscyamine (Hyomax-Sl) 0.125 mg SL QID [facility] Last Admin: 03/24/19 12:01 Dose: 0.125 mg Clindamycin Phosphate 300 mg/ (Premix) 50 mls @ 100 mls/hr IV Q6H [facility] Last Admin: 03/23/19 18:42 Dose: 100 mls/hr Multivitamins/Minerals/Vitamin C (Tab-A-Grace) 3 tab PO BID [facility] Non-Formulary Medication (Cyanocobalamin/Fa/Pyridoxine [Homocysteine Formula]) 3 tab PO BID [facility] Last Admin: 03/24/19 08:39 Dose: Not Given Non-Formulary Medication (Estradiol [Estrace 0.01% Vaginal Crm]) 1 applic VAG Q72H [facility] Last Admin: 03/24/19 08:39 Dose: Not Given Non-Formulary Medication (Hyoscyamine Sulfate [Hyoscyamine Sulfate]) 0.125 mg SL QID PRN PRN Reason: Diarrhea Non-Formulary Medication (Ibuprofen [Ibuprofen]) 800 mg PO Q6H PRN PRN Reason: Pain/Fever Non-Formulary Medication (Lutein [Lutein]) 40 mg PO DAILY [facility] Last Admin: 03/24/19 08:39 Dose: Not Given Pantoprazole Sodium (Protonix) 40 mg PO ONETIME ONE Stop: 03/24/19 08:16 Last Admin: 03/24/19 08:44 Dose: 40 mg Temazepam (Restoril) 15 mg PO BEDTIME PRN PRN Reason: Sleep - Exam General: Reports: Alert, Oriented, Cooperative, No Acute Distress Lungs: Reports: Clear to Auscultation, Normal Respiratory Effort Cardiovascular: Reports: Regular Rate, Regular Rhythm, No Murmurs Back Exam: Reports: Normal Inspection, Full Range of Motion Extremities: Normal Range of Motion, Non-Tender, No Pedal Edema (none today), Normal Capillary Refill, Redness (very mild BLE anterior shins near ankle. Improved again from yesterday.) Skin: Reports: Warm, Dry, Intact Neurological: Reports: No New Focal Deficit Psy/Mental Status: Reports: Alert, Normal Affect, Normal Mood
== END 2019-03-26 10:34 | disposition home or self-care (01) | DRG 603 ==
LOC: UNDOADMIN 15:58 → CC.MS 15:58
PROVIDERS: ADMIT Nurse Practitioner Family; ATTEND Family Medicine
DX: L03.115 Cellulitis of right lower limb (principal); E78.5 Hyperlipidemia, unspecified; I10 Essential (primary) hypertension; Z96.649 Presence of unspecified artificial hip joint; E66.9 Obesity, unspecified; I87.2 Venous insufficiency (chronic) (peripheral); L03.116 Cellulitis of left lower limb; Z91.14 Patient's other noncompliance with medication regimen; Z89.431 Acquired absence of right foot; Z90.89 Acquired absence of other organs; Z68.35 Body mass index [BMI] 35.0-35.9, adult
CPT/HCPCS: 36415; 71046; 80048; 83880; 85025; 86140; 93005; 93010; A4217; A9270-GY; J1650; J1940; J3490

== ENCOUNTER 2019-05-05 21:09 | Inpatient (IN) | payer MEDICARE, BC ==
--- NOTE | 2019-05-05 21:14 | EDM.PDOC ---
ED HPI GENERAL MEDICAL PROBLEM - General Chief Complaint: General Stated Complaint: left hip pain Time Seen by Provider: 05/05/19 21:13 Source of Information: Reports: Patient History Limitations: Reports: No Limitations - History of Present Illness INITIAL COMMENTS - FREE TEXT/NARRATIVE: Mini is a 78 year old female who presents to the ED via private vehicle with c/o left hip pain. She reports she was in [place] for the day today. Reports she was shopping and then went to a movie. Following this they went for supper. When she finished eating supper and went to get up from her chair, she reports she grabbed her walker, and suddenly had significant left hip pain, causing her leg to "give out." She reports somehow she fell backwards into a chair. Was able to be helped to her car by family, who then drove her back to [place] and brought her to ED as she was unable to bear weight on LLE due to this significant left hip pain. Denies any back pain. Does have chronic edema of BLE, no worse than baseline. No redness, ecchymosis, or open areas notes. Denies any numbness or tingling. 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 She reports she is scheduled to have vein procedure with Dr. Beverly on Tuesday. Onset: Today, Sudden Duration: Intermittent (when bearing weight) Location: Reports: Lower Extremity, Left Quality: Reports: Sharp, Throbbing Severity: Severe Improves with: Reports: None Worsens with: Reports: Movement (weight bearing) Context: Reports: Activity. Denies: Sick Contact Associated Symptoms: Reports: No Other Symptoms. Denies: Confusion, Chest Pain , Cough, cough w sputum, Diaphoresis, Fever/Chills, Headaches, Loss of Appetite , Malaise, Nausea/Vomiting, Rash, Seizure, Shortness of Breath, Syncope, Weakness Left Hip Pain Score (Numeric/FACES): 8 - Related Data Allergies Allergy/AdvReac Type Severity Reaction Status Date / Time No Known Allergies Allergy Verified 05/05/19 21:11 Home Meds: Home Meds Acetaminophen [Tylenol Extra Strength] 1,000 mg PO Q6H PRN 05/27/14 [History] Ibuprofen 800 mg PO Q6H PRN 05/27/14 [History] Multivitamin [Daily Vitamin] 3 tab PO BID 05/27/14 [History] Pantoprazole Sodium 40 mg PO BEDTIME 05/27/14 [History] Levothyroxine Sodium 150 mcg PO DAILY 12/04/15 [History] Ascorbate Calcium [Vitamin C] 1,500 mg PO DAILY 06/26/17 [History] Calcium Carbonate [Calcium] 3,000 mg PO DAILY 06/26/17 [History] Cholecalciferol (Vitamin D3) [Vitamin D3] 10,000 unit PO DAILY 06/26/17 [History ] Lutein 40 mg PO DAILY 06/26/17 [History] Vit A/C/E/Zinc/Selenium/Copper [Vision Formula Tablet] 2 tab PO BID 06/26/17 [ History] Cyanocobalamin/FA/Pyridoxine [Homocysteine Formula] 3 tab PO BID 08/29/17 [ History] Hyoscyamine Sulfate 0.125 mg SL QID 08/29/17 [History] traZODone HCl [Trazodone HCl] 50 mg PO BEDTIME 08/29/17 [History] Nitrofurantoin Monohyd/M-Cryst [Macrobid 100 mg Capsule] 100 mg PO BEDTIME 02/17 [History] Estradiol [Estrace 0.01% Vaginal Crm] 1 applic VAG Q72H 03/23/19 [History] Furosemide 40 mg PO DAILY PRN 03/23/19 [History] Gabapentin [Neurontin] 100 - 200 mg PO BEDTIME PRN 03/23/19 [History] Memantine HCl 5 mg PO DAILY 03/23/19 [History] atorvaSTATin [Lipitor] 10 mg PO BEDTIME 03/23/19 [History] Clindamycin HCl [Cleocin HCl] 300 mg PO QID 4 Days #16 capsule 03/26/19 [Rx] Past Medical History HEENT History: Reports: Hard of Hearing Cardiovascular History: Reports: High Cholesterol, Hypertension Gastrointestinal History: Reports: Chronic Constipation, Chronic Diarrhea, Colon Polyp, Diverticulosis, GERD Musculoskeletal History: Reports: Arthritis Neurological History: Reports: MS Psychiatric History: Reports: Anxiety Endocrine/Metabolic History: Reports: Hypothyroidism - Past Surgical History HEENT Surgical History: Reports: Cataract Surgery Female Surgical History: Reports: Hysterectomy Endocrine Surgical History: Reports: Thyroidectomy Musculoskeletal Surgical History: Reports: Joint Replacement Social & Family History - Caffeine Use Caffeine Use: Reports: None ED ROS GENERAL - Review of Systems Review Of Systems: ROS reveals no pertinent complaints other than HPI. Constitutional: Denies: Fever, Chills, Weakness, Fatigue Respiratory: Reports: No Symptoms Cardiovascular: Reports: No Symptoms GI/Abdominal: Reports: No Symptoms Musculoskeletal: Reports: Leg Pain (left), Joint Pain (left hip). Denies: Back Pain, Joint Swelling Skin: Reports: No Symptoms Neurological: Reports: Difficulty Walking (left lower extremity pain), Gait Disturbance. Denies: Confusion, Numbness, Paresthesia, Tingling ED EXAM, GENERAL - Physical Exam Exam: See Below Exam Limited By: No Limitations General Appearance: Alert, WD/WN, Anxious Head: Atraumatic, Normocephalic Neck: Normal Inspection, Supple, Non-Tender, Full Range of Motion Respiratory/Chest: No Respiratory Distress, Lungs Clear, Normal Breath Sounds, No Accessory Muscle Use, Chest Non-Tender Cardiovascular: Normal Peripheral Pulses, Regular Rate, Rhythm, No Edema, No Gallop, No JVD, No Murmur, No Rub Peripheral Pulses: 2+: Popliteal (L), Posterior Tibial (L), Dorsalis Pedis (L) GI/Abdominal: Normal Bowel Sounds, Soft, Non-Tender, No Organomegaly, No Distention, No Abnormal Bruit, No Mass Back Exam: Normal Inspection, Full Range of Motion. No: Muscle Spasm, Paraspinal Tenderness, Vertebral Tenderness Extremities: Normal Capillary Refill, Pedal Edema (2+ BLE), Leg Pain, Limited Range of Motion (left hip), Other (tenderness to left lateral hip, hypersensitivity to bilateral lower extremities). No: Joint Swelling, Increased Warmth, Redness Neurological: Alert, Oriented, No Motor/Sensory Deficits, Abnormal Gait (unable to bear weight on LLE), Other Psychiatric: Anxious Skin Exam: Intact. No: Ecchymosis, Erythema Course - Vital Signs Last Recorded V/S: Last Vital Signs Temp 98.1 F 05/06/19 12:00 Pulse 85 05/06/19 12:00 Resp 18 05/06/19 12:00 BP 123/63 05/06/19 12:00 Pulse Ox 97 05/06/19 12:00 - Orders/Labs/Meds Orders: Active Orders 24 hr Category Date Time Status Patient Status [ADT] Routine ADT 05/05/19 23:15 Active Oxygen Therapy [RC] .PRN Care 05/05/19 23:15 Active Pulse Oximetry [RC] .PRN Care 05/05/19 23:15 Active Up With Assistance [RC] .PRN Care 05/05/19 23:15 Active Vital Signs [RC] 0800,1200,2000 Care 05/05/19 23:15 Active PT Evaluation and Treatment [CONS] Routine Cons 05/05/19 23:15 Active Hip Min 2V or 3V w Pelvis Lt [CR] Stat Exams 05/05/19 21:13 Taken Hip wo Cont Lt [CT] Stat Exams 05/05/19 22:06 Taken Acetaminophen [Tylenol Extra Strength] Med 05/05/19 23:15 Active 1,000 mg PO Q6H PRN Acetaminophen/HYDROcodone [[place] 325-5 MG] Med 05/05/19 23:15 Active 1 tab PO Q4H PRN Calcium Carbonate [Tums] Med 05/06/19 08:00 Active 3,000 mg PO DAILY Cholecalciferol (Vitamin D3) [Vitamin D3] Med 05/06/19 08:00 Active 250 mcg PO DAILY Enoxaparin [Lovenox] Med 05/06/19 10:00 Active 40 mg SUBCUT DAILY Furosemide [Lasix] Med 05/05/19 23:15 Active 40 mg PO DAILY PRN Ibuprofen [Motrin] Med 05/05/19 23:15 Active 600 mg PO Q6H PRN Levothyroxine Med 05/06/19 08:00 Active 150 mcg PO DAILY Magnesium Hydroxide [Milk of Magnesia] Med 05/05/19 23:15 Active 30 ml PO Q12H PRN Ondansetron [Zofran] Med 05/05/19 23:15 Active 4 mg IV Q6H PRN Pantoprazole [ProTONIX] Med 05/06/19 20:00 Active 40 mg PO BEDTIME Temazepam [Restoril] Med 05/05/19 23:15 Active 15 mg PO BEDTIME PRN Medication Orders Acetaminophen (Tylenol Extra Strength) 1,000 mg PO Q6H PRN PRN Reason: Pain/Fever Hydrocodone Bitart/Acetaminophen ([place] 325-5 Mg) 1 tab PO Q4H PRN PRN Reason: Pain (moderate 4-6) Last Admin: 05/06/19 00:15 Dose: 1 tab Atorvastatin Calcium (Lipitor) 10 mg PO BEDTIME [facility] Last Admin: 05/06/19 04:37 Dose: Not Given Calcium Carbonate/Glycine (Tums) 3,000 mg PO DAILY [facility] Last Admin: 05/06/19 07:34 Dose: 3,000 mg Cholecalciferol (Vitamin D3) 250 mcg PO DAILY [facility] Last Admin: 05/06/19 07:32 Dose: 250 mcg Enoxaparin Sodium (Lovenox) 40 mg SUBCUT DAILY [facility] Last Admin: 05/06/19 11:06 Dose: Furosemide (Lasix) 40 mg PO DAILY PRN PRN Reason: Edema Gabapentin (Neurontin) 100 mg PO TID PRN PRN Reason: Other Ibuprofen (Motrin) 600 mg PO Q6H PRN PRN Reason: Pain (mild 1-3) Levothyroxine Sodium (Levothyroxine) 150 mcg PO DAILY [facility] Last Admin: 05/06/19 07:27 Dose: 150 mcg Magnesium Hydroxide (Milk Of Magnesia) 30 ml PO Q12H PRN PRN Reason: Constipation Memantine (Namenda) 5 mg PO DAILY [facility] Nitrofurantoin Macrocrystals (Macrobid) 100 mg PO DAILY@1999 [facility] Ondansetron HCl (Zofran) 4 mg IV Q6H PRN PRN Reason: Nausea/Vomiting Pantoprazole Sodium (Protonix) 40 mg PO BEDTIME [facility] Temazepam (Restoril) 15 mg PO BEDTIME PRN PRN Reason: Sleep Trazodone HCl (Trazodone) 50 mg PO BEDTIME [facility] Meds: Medications Generic Name Dose Route Start Last Admin Trade Name Freq PRN Reason Stop Dose Admin Acetaminophen 1,000 mg 05/05/19 23:15 Tylenol Extra Strength PO Q6H PRN Pain/Fever Hydrocodone Bitart/Acetaminophen 1 tab 05/05/19 23:15 05/06/19 00:15 [place] 325-5 Mg PO 1 tab Q4H PRN Administration Pain (moderate 4-6) Atorvastatin Calcium 10 mg 05/06/19 00:45 05/06/19 04:37 Lipitor PO Not Given BEDTIME [facility] Calcium Carbonate/Glycine 3,000 mg 05/06/19 08:00 05/06/19 07:34 Tums PO 3,000 mg DAILY [facility] Administration Cholecalciferol 250 mcg 05/06/19 08:00 05/06/19 07:32 Vitamin D3 PO 250 mcg DAILY [facility] Administration Enoxaparin Sodium 40 mg 05/06/19 10:00 05/06/19 11:06 Lovenox SUBCUT Not Given DAILY [facility] Furosemide 40 mg 05/05/19 23:15 Lasix PO DAILY PRN Edema Gabapentin 100 mg 05/06/19 12:13 Neurontin PO TID PRN Other Ibuprofen 600 mg 05/05/19 23:15 Motrin PO Q6H PRN Pain (mild 1-3) Levothyroxine Sodium 150 mcg 05/06/19 08:00 05/06/19 07:27 Levothyroxine PO 150 mcg DAILY [facility] Administration Magnesium Hydroxide 30 ml 05/05/19 23:15 Milk Of Magnesia PO Q12H PRN Constipation Memantine 5 mg 05/07/19 08:00 Namenda PO DAILY [facility] Nitrofurantoin Macrocrystals 100 mg 05/06/19 20:00 Macrobid PO DAILY@2000 [facility] Ondansetron HCl 4 mg 05/05/19 23:15 Zofran IV Q6H PRN Nausea/Vomiting Pantoprazole Sodium 40 mg 05/06/19 20:00 Protonix PO BEDTIME [facility] Temazepam 15 mg 05/05/19 23:15 Restoril PO BEDTIME PRN Sleep Trazodone HCl 50 mg 05/06/19 20:00 Trazodone PO BEDTIME [facility] Discontinued Medications Generic Name Dose Route Start Last Admin Trade Name Freq PRN Reason Stop Dose Admin Acetaminophen 650 mg 05/05/19 23:15 Tylenol PO Q4H PRN Pain (Mild 1-3)/fever Atorvastatin Calcium 10 mg 05/06/19 08:00 Lipitor PO DAILY [facility] Gabapentin 100 mg 05/05/19 23:15 Neurontin PO BEDTIME PRN Other Magnesium Oxide 250 mg 05/06/19 08:00 05/06/19 07:45 Magnesium Oxide PO Not Given DAILY [facility] Memantine 10 mg 05/06/19 08:00 05/06/19 07:28 Namenda PO 5 mg DAILY [facility] Administration Nitrofurantoin Macrocrystals 100 mg 05/06/19 08:00 Macrobid PO DAILY [facility] Trazodone HCl 50 mg 05/05/19 23:15 Trazodone PO BEDTIME PRN Insomnia Departure - Departure Time of Disposition: 23:35 Disposition: Refer to Observation Condition: Fair Clinical Impression: Inability to bear weight Hip pain, acute Qualifiers: Laterality: left Qualified Code(s): M25.552 - Pain in left hip - Discharge Information *PRESCRIPTION DRUG MONITORING PROGRAM REVIEWED*: Not Applicable *COPY OF PRESCRIPTION DRUG MONITORING REPORT IN PATIENT SHERRY: Not Applicable - Problem List & Annotations (1) Hip pain, acute SNOMED Code(s): 35011527, 293937763 Code(s): M25.559 - PAIN IN UNSPECIFIED HIP Status: Acute Current Visit: Yes Qualifiers: Laterality: left Qualified Code(s): M25.552 - Pain in left hip (2) Inability to bear weight SNOMED Code(s): 557397619 Code(s): R26.89 - OTHER ABNORMALITIES OF GAIT AND MOBILITY Status: Acute Current Visit: Yes - Problem List Review Problem List Initiated/Reviewed/Updated: Yes - My Orders Last 24 Hours: My Active Orders 05/05/19 21:13 Hip Min 2V or 3V w Pelvis Lt [CR] Stat 05/05/19 22:06 Hip wo Cont Lt [CT] Stat 05/05/19 23:15 Patient Status [ADT] Routine Oxygen Therapy [RC] .PRN Pulse Oximetry [RC] .PRN Up With Assistance [RC] .PRN Vital Signs [RC] 0800,1200,2000 PT Evaluation and Treatment [CONS] Routine Acetaminophen [Tylenol Extra Strength] 1,000 mg PO Q6H PRN Acetaminophen/HYDROcodone [[place] 325-5 MG] 1 tab PO Q4H PRN Furosemide [Lasix] 40 mg PO DAILY PRN Ibuprofen [Motrin] 600 mg PO Q6H PRN Magnesium Hydroxide [Milk of Magnesia] 30 ml PO Q12H PRN Ondansetron [Zofran] 4 mg IV Q6H PRN Temazepam [Restoril] 15 mg PO BEDTIME PRN 05/06/19 08:00 Calcium Carbonate [Tums] 3,000 mg PO DAILY Cholecalciferol (Vitamin D3) [Vitamin D3] 250 mcg PO DAILY Levothyroxine 150 mcg PO DAILY 05/06/19 10:00 Enoxaparin [Lovenox] 40 mg SUBCUT DAILY 05/06/19 20:00 Pantoprazole [ProTONIX] 40 mg PO BEDTIME - Assessment/Plan Admission H&P: Please use this note as an admission H&P Last 24 Hours: My Active Orders 05/05/19 21:13 Hip Min 2V or 3V w Pelvis Lt [CR] Stat 05/05/19 22:06 Hip wo Cont Lt [CT] Stat 05/05/19 23:15 Patient Status [ADT] Routine Oxygen Therapy [RC] .PRN Pulse Oximetry [RC] .PRN Up With Assistance [RC] .PRN Vital Signs [RC] 0800,1200,2000 PT Evaluation and Treatment [CONS] Routine Acetaminophen [Tylenol Extra Strength] 1,000 mg PO Q6H PRN Acetaminophen/HYDROcodone [[place] 325-5 MG] 1 tab PO Q4H PRN Furosemide [Lasix] 40 mg PO DAILY PRN Ibuprofen [Motrin] 600 mg PO Q6H PRN Magnesium Hydroxide [Milk of Magnesia] 30 ml PO Q12H PRN Ondansetron [Zofran] 4 mg IV Q6H PRN Temazepam [Restoril] 15 mg PO BEDTIME PRN 05/06/19 08:00 Calcium Carbonate [Tums] 3,000 mg PO DAILY Cholecalciferol (Vitamin D3) [Vitamin D3] 250 mcg PO DAILY Levothyroxine 150 mcg PO DAILY 05/06/19 10:00 Enoxaparin [Lovenox] 40 mg SUBCUT DAILY 05/06/19 20:00 Pantoprazole [ProTONIX] 40 mg PO BEDTIME Assessment:: Left hip Pain Inability to bear weight on LLE Plan: Xrays of left hip negative for acute fracture or dislocation. Does have decreased bone density. Opted to proceed with CT left hip as patient will not bear any weight on it. CT also negative for acute fracture or dislocation. Will admit patient to observation. She is unable to ambulate or care for self in home. Will attempt pain relief and assistance with ADLs and continue to monitor.
[2019-05-05] MEDS ORDERED: Gabapentin 100 MG Cap PO PRN (23:15)
[2019-05-05] MEDS ORDERED: Ondansetron 4 MG/2 ML SDV IV PRN (23:15)
[2019-05-05] MEDS ORDERED: Acetaminophen 325 MG Tab PO PRN (23:15)
[2019-05-05] MEDS ORDERED: Temazepam 15 MG Cap PO PRN (23:15)
[2019-05-05] MEDS ORDERED: Ibuprofen 200 MG Tab PO PRN (23:15)
[2019-05-05] MEDS ORDERED: traZODone 50 MG Tab**OWN MED PO PRN (23:15)
[2019-05-05] MEDS ORDERED: Furosemide 40 MG Tab PO PRN (23:15)
[2019-05-05] MEDS ORDERED: Magnesium Hydroxide 400 MG/5 ML Susp 30 ML Cup PO PRN (23:15)
[2019-05-06] MEDS: Acetaminophen/HYDROcodone 325-5 MG Tab PO PRN ×2 (00:15→21:50)
[2019-05-06] MEDS: atorvaSTATin 10 MG Tab PO SCH ×2 (04:37→20:00)
[2019-05-06] MEDS: Levothyroxine 150 MCG Tab PO SCH (07:27)
[2019-05-06] MEDS: Cholecalciferol (Vitamin D3) 25 MCG Tab PO SCH (07:32)
[2019-05-06] MEDS: Calcium Carbonate 500 MG Tab.Chew PO SCH (07:34)
[2019-05-06] MEDS ORDERED: MACROCRYSTALLINE PO SCH (08:00)
[2019-05-06] MEDS ORDERED: MEMANTINE 10 MG PO SCH (08:00)
[2019-05-06] MEDS ORDERED: atorvaSTATin 10 MG Tab**OWN MED PO SCH (08:00)
[2019-05-06] MEDS ORDERED: NITROFURANTOIN MONOHYDRATE PO SCH (08:00)
[2019-05-06 08:09] LABS: CHLORIDE,CL 108 mEq/L (98-106); SODIUM,NA 144 mEq/L (136-145)
[2019-05-06] MEDS: Enoxaparin 40 MG/0.4 ML Syringe SUBCUT SCH ×2 (10:49→11:06)
--- NOTE | 2019-05-06 11:36 | PCM.PN ---
- General Info Date of Service: 05/06/19 Admission Dx/Problem (Free Text): Left Hip Pain Inability to bear weight LLE Subjective Update: Mini is a 78 year old female who was admitted last evening with left hip pain and inability to bear weight on LLE. She reports that she continues to struggle to stand on LLE. Nursing staff report she is only able to pivot to get up to the commode. Denies any pain at rest, but significant pain when attempting to bear weight. She reports she didn't realized it last night as she was so focused on her hip, but now has been having more pain to her left lower extremity and behind her knee. She denies any lower back pain. Denies any numbness and tingling. No other complaints. Reports she otherwise is feeling well. Functional Status: Reports: Tolerating Diet, Urinating, New Symptoms (lower left leg pain). Denies: Pain Controlled, Ambulating - Review of Systems General: Reports: Weakness. Denies: Fever, Fatigue, Chills Pulmonary: Reports: No Symptoms Cardiovascular: Reports: No Symptoms Gastrointestinal: Reports: No Symptoms Musculoskeletal: Reports: Leg Pain, Joint Pain (left knee). Denies: Back Pain Skin: Reports: No Symptoms Neurological: Reports: No Symptoms - Patient Data Vitals - Most Recent: Last Vital Signs Temp 98.8 F 05/06/19 07:52 Pulse 90 05/06/19 07:52 Resp 16 05/06/19 07:52 BP 120/66 05/06/19 07:52 Pulse Ox 97 05/06/19 07:52 Weight - Most Recent: 212 lb Lab Results Last 24 Hours: Laboratory Results - last 24 hr 05/06/19 05/06/19 Range/Units 07:00 07:00 WBC 9.7 (5.0-10.0) 10^3/uL RBC 3.86 L (4.00-5.50) 10^6/uL Hgb 11.7 L (12.0-16.0) g/dL Hct 36.9 L (37.0-47.0) % MCV 95.6 H (82.0-94.0) fL MCH 30.3 (27.0-32.0) pg MCHC 31.7 L (33.0-38.0) g/dL RDW Coeff of Senthil 12.8 (11.0-15.0) % Plt Count 237 (150-400) 10^3/uL Neut % (Auto) 59.3 (35-85) % Lymph % (Auto) 26.0 (10-55) % [place] % (Auto) 9.9 (0-16) % Eos % (Auto) 4.1 (0-5) % Baso % (Auto) 0.7 (0-3) % Neut # (Auto) 5.73 (1.80-7.00) 10^3/uL Lymph # (Auto) 2.51 (1.00-4.80) 10^3/uL [place] # (Auto) 0.96 H (0.00-0.80) 10^3/uL Eos # (Auto) 0.40 (0.00-0.45) 10^3/uL Baso # (Auto) 0.07 10^3/uL Sodium 144 (136-145) mEq/L Potassium 3.9 (3.5-5.0) mEq/L Chloride 108 H (98-106) mEq/L Carbon Dioxide 27 (21-32) mmol/L BUN 23 H (7-18) mg/dL Creatinine 0.8 (0.6-1.0) mg/dL Est Cr Clr Drug Dosing 51.66 mL/min Estimated GFR (MDRD) > 60 (>=60) mL/min Glucose 90 (75-99) mg/dL Calcium 9.2 (8.4-10.1) mg/dL C-Reactive Protein 0.5 (0.2-0.8) mg/dL Med Orders - Current: Current Medications Acetaminophen (Tylenol) 650 mg PO Q4H PRN PRN Reason: Pain (Mild 1-3)/fever Acetaminophen (Tylenol Extra Strength) 1,000 mg PO Q6H PRN PRN Reason: Pain/Fever Hydrocodone Bitart/Acetaminophen ([place] 325-5 Mg) 1 tab PO Q4H PRN PRN Reason: Pain (moderate 4-6) Last Admin: 05/06/19 00:15 Dose: 1 tab Atorvastatin Calcium (Lipitor) 10 mg PO BEDTIME [facility] Last Admin: 05/06/19 04:37 Dose: Not Given Calcium Carbonate/Glycine (Tums) 3,000 mg PO DAILY [facility] Last Admin: 05/06/19 07:34 Dose: 3,000 mg Cholecalciferol (Vitamin D3) 250 mcg PO DAILY [facility] Last Admin: 05/06/19 07:32 Dose: 250 mcg Enoxaparin Sodium (Lovenox) 40 mg SUBCUT DAILY [facility] Last Admin: 05/06/19 11:06 Dose: Not Given Furosemide (Lasix) 40 mg PO DAILY PRN PRN Reason: Edema Gabapentin (Neurontin) 100 mg PO BEDTIME PRN PRN Reason: Other Ibuprofen (Motrin) 600 mg PO Q6H PRN PRN Reason: Pain (mild 1-3) Levothyroxine Sodium (Levothyroxine) 150 mcg PO DAILY [facility] Last Admin: 05/06/19 07:27 Dose: 150 mcg Magnesium Hydroxide (Milk Of Magnesia) 30 ml PO Q12H PRN PRN Reason: Constipation Memantine (Namenda) 5 mg PO DAILY [facility] Nitrofurantoin Macrocrystals (Macrobid) 100 mg PO DAILY@2000 [facility] Ondansetron HCl (Zofran) 4 mg IV Q6H PRN PRN Reason: Nausea/Vomiting Pantoprazole Sodium (Protonix) 40 mg PO BEDTIME [facility] Temazepam (Restoril) 15 mg PO BEDTIME PRN PRN Reason: Sleep Trazodone HCl (Trazodone) 50 mg PO BEDTIME [facility] Discontinued Medications Atorvastatin Calcium (Lipitor) 10 mg PO DAILY [facility] Magnesium Oxide (Magnesium Oxide) 250 mg PO DAILY [facility] Last Admin: 05/06/19 07:45 Dose: Not Given Memantine (Namenda) 10 mg PO DAILY [facility] Last Admin: 05/06/19 07:28 Dose: 5 mg Nitrofurantoin Macrocrystals (Macrobid) 100 mg PO DAILY [facility] Trazodone HCl (Trazodone) 50 mg PO BEDTIME PRN PRN Reason: Insomnia - Exam Quality Assessment: DVT Prophylaxis. No: Skin Breakdown General: Alert, Oriented, No Acute Distress Neck: Supple Lungs: Clear to Auscultation, Normal Respiratory Effort Cardiovascular: Regular Rate, Regular Rhythm GI/Abdominal Exam: Normal Bowel Sounds, Soft, Non-Tender, No Organomegaly, No Distention, No Abnormal Bruit, No Mass, Pelvis Stable Back Exam: Normal Inspection, Full Range of Motion Extremities: Normal Capillary Refill, Pedal Edema (2+), Leg Pain (left lower leg , tenderness behind left knee and throughout distal aspect of left leg). No: Joint Swelling, Increased Warmth, Redness Peripheral Pulses: 2+: Popliteal (L), Posterior Tibial (L), Dorsalis Pedis (L) Skin: Warm, Dry, Intact Neurological: No New Focal Deficit. No: Normal Gait Psy/Mental Status: Alert, Anxious - Problem List & Annotations (1) Leg pain, left SNOMED Code(s): 573925290 Code(s): M79.605 - PAIN IN LEFT LEG Status: Acute Current Visit: Yes (2) Hip pain, acute SNOMED Code(s): 01778206, 504497261 Code(s): M25.559 - PAIN IN UNSPECIFIED HIP Status: Acute Current Visit: Yes Qualifiers: Laterality: left Qualified Code(s): M25.552 - Pain in left hip (3) Inability to bear weight SNOMED Code(s): 948972918 Code(s): R26.89 - OTHER ABNORMALITIES OF GAIT AND MOBILITY Status: Acute Current Visit: Yes - Problem List Review Problem List Initiated/Reviewed/Updated: Yes - My Orders Last 24 Hours: My Active Orders 05/05/19 21:13 Hip Min 2V or 3V w Pelvis Lt [CR] Stat 05/05/19 22:06 Hip wo Cont Lt [CT] Stat 05/05/19 23:15 Patient Status [ADT] Routine Oxygen Therapy [RC] .PRN Pulse Oximetry [RC] .PRN Up With Assistance [RC] .PRN Vital Signs [RC] 0800,1200,2000 PT Evaluation and Treatment [CONS] Routine Acetaminophen [Tylenol Extra Strength] 1,000 mg PO Q6H PRN Acetaminophen [Tylenol] 650 mg PO Q4H PRN Acetaminophen/HYDROcodone [[place] 325-5 MG] 1 tab PO Q4H PRN Furosemide [Lasix] 40 mg PO DAILY PRN Gabapentin [Neurontin] 100 mg PO BEDTIME PRN Ibuprofen [Motrin] 600 mg PO Q6H PRN Magnesium Hydroxide [Milk of Magnesia] 30 ml PO Q12H PRN Ondansetron [Zofran] 4 mg IV Q6H PRN Temazepam [Restoril] 15 mg PO BEDTIME PRN 05/06/19 00:45 atorvaSTATin [Lipitor] 10 mg PO BEDTIME 05/06/19 08:00 Calcium Carbonate [Tums] 3,000 mg PO DAILY Cholecalciferol (Vitamin D3) [Vitamin D3] 250 mcg PO DAILY Levothyroxine 150 mcg PO DAILY 05/06/19 10:00 Enoxaparin [Lovenox] 40 mg SUBCUT DAILY 05/06/19 11:35 Knee 3V Lt [CR] Routine Tibia Fibula Lt [CR] Routine 05/06/19 20:00 Nitrofurantoin [place]/Macrocryst [Macrobid] 100 mg PO DAILY@1999 Pantoprazole [ProTONIX] 40 mg PO BEDTIME traZODone 50 mg PO BEDTIME 05/07/19 08:00 Memantine [Namenda] 5 mg PO DAILY - Plan Plan:: Labs all stable. Xrays of left knee and tib/fib completed. No acute findings per my review. Awaiting final radiology report. Increase gabapentin to 100 mg TID as needed. [place] as needed for pain. Try ice/heat to areas of pain as needed. Patient denies any significant lower back pain or radiation of pain from back. If no improvement with above therapies, may need to obtain lumber spine imaging. Consult to PT to evaluate patient tomorrow.
[2019-05-06] MEDS ORDERED: Gabapentin 100 MG Cap PO PRN (12:13)
[2019-05-06] MEDS: Pantoprazole 40 MG Tab.CR PO SCH (20:00)
[2019-05-06] MEDS: traZODone 50 MG Tab PO SCH (20:00)
[2019-05-06] MEDS: MACROCRYSTALLINE PO SCH (20:01)
[2019-05-06] MEDS: NITROFURANTOIN MONOHYDRATE PO SCH (20:01)
[2019-05-07] MEDS: Levothyroxine 150 MCG Tab PO SCH (08:29)
[2019-05-07] MEDS: Enoxaparin 40 MG/0.4 ML Syringe SUBCUT SCH (08:35)
[2019-05-07] MEDS: Calcium Carbonate 500 MG Tab.Chew PO SCH (08:41)
[2019-05-07] MEDS: Memantine 10 MG Tab PO SCH (08:44)
[2019-05-07] MEDS: Cholecalciferol (Vitamin D3) 25 MCG Tab PO SCH (10:10)
--- NOTE | 2019-05-07 12:09 | PCM.HP.2 ---
H&P History of Present Illness - General Admit Problem/Dx: Left Hip Pain Inability to bear weight LLE Left Hip Pain Score (Numeric/FACES): 8 Left Knee Pain Score (Numeric/FACES): 2 - Related Data Allergies/Adverse Reactions: Allergies Allergy/AdvReac Type Severity Reaction Status Date / Time No Known Allergies Allergy Verified 05/05/19 21:11 Home Medications: Home Meds Acetaminophen [Tylenol Extra Strength] 1,000 mg PO Q6H PRN 05/27/14 [History] Ibuprofen 800 mg PO Q6H PRN 05/27/14 [History] Multivitamin [Daily Vitamin] 3 tab PO BID 05/27/14 [History] Pantoprazole Sodium 40 mg PO BEDTIME 05/27/14 [History] Levothyroxine Sodium 150 mcg PO DAILY 12/04/15 [History] Ascorbate Calcium [Vitamin C] 1,500 mg PO DAILY 06/26/17 [History] Calcium Carbonate [Calcium] 3,000 mg PO DAILY 06/26/17 [History] Cholecalciferol (Vitamin D3) [Vitamin D3] 10,000 unit PO DAILY 06/26/17 [History ] Lutein 40 mg PO DAILY 06/26/17 [History] Vit A/C/E/Zinc/Selenium/Copper [Vision Formula Tablet] 2 tab PO BID 06/26/17 [ History] Cyanocobalamin/FA/Pyridoxine [Homocysteine Formula] 3 tab PO BID 08/29/17 [ History] Hyoscyamine Sulfate 0.125 mg SL QID 08/29/17 [History] traZODone HCl [Trazodone HCl] 50 mg PO BEDTIME 08/29/17 [History] Nitrofurantoin Monohyd/M-Cryst [Macrobid 100 mg Capsule] 100 mg PO BEDTIME 02/17 [History] Estradiol [Estrace 0.01% Vaginal Crm] 1 applic VAG Q72H 03/23/19 [History] Furosemide 40 mg PO DAILY PRN 03/23/19 [History] Gabapentin [Neurontin] 100 - 200 mg PO BEDTIME PRN 03/23/19 [History] Memantine HCl 5 mg PO DAILY 03/23/19 [History] atorvaSTATin [Lipitor] 10 mg PO BEDTIME 03/23/19 [History] Clindamycin HCl [Cleocin HCl] 300 mg PO QID 4 Days #16 capsule 03/26/19 [Rx] Past Medical History HEENT History: Reports: Hard of Hearing Cardiovascular History: Reports: High Cholesterol, Hypertension Gastrointestinal History: Reports: Chronic Constipation, Chronic Diarrhea, Colon Polyp, Diverticulosis, GERD Musculoskeletal History: Reports: Arthritis Neurological History: Reports: MS Psychiatric History: Reports: Anxiety Endocrine/Metabolic History: Reports: Hypothyroidism - Past Surgical History HEENT Surgical History: Reports: Cataract Surgery Female Surgical History: Reports: Hysterectomy Endocrine Surgical History: Reports: Thyroidectomy Musculoskeletal Surgical History: Reports: Joint Replacement Social & Family History - Family History Family Medical History: Noncontributory - Tobacco Use Smoking Status *Q: Never Smoker Second Hand Smoke Exposure: No - Caffeine Use Caffeine Use: Reports: None Exam - Vital Signs Vital Signs: Last Vital Signs Temp 98.6 F 05/07/19 11:19 Pulse 88 05/07/19 11:19 Resp 16 05/07/19 11:19 BP 103/49 L 05/07/19 11:19 Pulse Ox 99 05/07/19 11:19 Weight: 212 lb - Patient Data Result Diagrams: 05/06/19 07:00 05/06/19 07:00 Orders Last 24hrs: Active Orders 24 hr Category Date Time Status Patient Status [ADT] Routine ADT 05/07/19 09:35 Active Antiembolic Devices [RC] 1000,2200 Care 05/07/19 10:12 Active Knee 1V or 2V Lt [CR] Routine Exams 05/06/19 11:35 Taken Tibia Fibula Lt [CR] Routine Exams 05/06/19 11:35 Taken Gabapentin [Neurontin] Med 05/06/19 12:13 Active 100 mg PO TID PRN Memantine [Namenda] Med 05/07/19 08:00 Active 5 mg PO DAILY Nitrofurantoin [place]/Macrocryst [Macrobid] Med 05/06/19 20:00 Active 100 mg PO DAILY@2000 Pantoprazole [ProTONIX] Med 05/06/19 20:00 Active 40 mg PO BEDTIME traZODone Med 05/06/19 20:00 Active 50 mg PO BEDTIME JAVIER Hose [Antiembolic Hose] [OM.PC] Routine Oth 05/07/19 10:12 Ordered Medication Orders Acetaminophen (Tylenol Extra Strength) 1,000 mg PO Q6H PRN PRN Reason: Pain/Fever Hydrocodone Bitart/Acetaminophen ([place] 325-5 Mg) 1 tab PO Q4H PRN PRN Reason: Pain (moderate 4-6) Last Admin: 05/06/19 21:50 Dose: 1 tab Admin: 05/06/19 00:15 Dose: 1 tab Atorvastatin Calcium (Lipitor) 10 mg PO BEDTIME [facility] Last Admin: 05/06/19 20:00 Dose: 10 mg Admin: 05/06/19 04:37 Dose: Not Given Calcium Carbonate/Glycine (Tums) 3,000 mg PO DAILY [facility] Last Admin: 05/07/19 08:41 Dose: 3,000 mg Admin: 05/06/19 07:34 Dose: 3,000 mg Cholecalciferol (Vitamin D3) 250 mcg PO DAILY [facility] Last Admin: 05/07/19 10:10 Dose: 250 mcg Admin: 05/06/19 07:32 Dose: 250 mcg Enoxaparin Sodium (Lovenox) 40 mg SUBCUT DAILY [facility] Last Admin: 05/07/19 08:35 Dose: 40 mg Admin: 05/06/19 11:06 Dose: Furosemide (Lasix) 40 mg PO DAILY PRN PRN Reason: Edema Gabapentin (Neurontin) 100 mg PO TID PRN PRN Reason: Other Ibuprofen (Motrin) 600 mg PO Q6H PRN PRN Reason: Pain (mild 1-3) Levothyroxine Sodium (Levothyroxine) 150 mcg PO DAILY [facility] Last Admin: 05/07/19 08:29 Dose: 150 mcg Admin: 05/06/19 07:27 Dose: 150 mcg Magnesium Hydroxide (Milk Of Magnesia) 30 ml PO Q12H PRN PRN Reason: Constipation Memantine (Namenda) 5 mg PO DAILY [facility] Last Admin: 05/07/19 08:44 Dose: 5 mg Nitrofurantoin Macrocrystals (Macrobid) 100 mg PO DAILY@1999 [facility] Last Admin: 05/06/19 20:01 Dose: 100 mg Ondansetron HCl (Zofran) 4 mg IV Q6H PRN PRN Reason: Nausea/Vomiting Pantoprazole Sodium (Protonix) 40 mg PO BEDTIME [facility] Last Admin: 05/06/19 20:00 Dose: 40 mg Temazepam (Restoril) 15 mg PO BEDTIME PRN PRN Reason: Sleep Trazodone HCl (Trazodone) 50 mg PO BEDTIME [facility] Last Admin: 05/06/19 20:00 Dose: 50 mg Assessment/Plan Comment:: Labs all stable. Xrays of left knee and tib/fib completed. No acute findings per my review. Awaiting final radiology report. Increase gabapentin to 100 mg TID as needed. [place] as needed for pain. Try ice/heat to areas of pain as needed. Patient denies any significant lower back pain or radiation of pain from back. If no improvement with above therapies, may need to obtain lumber spine imaging. Consult to PT to evaluate patient tomorrow.
[2019-05-07] MEDS: Acetaminophen/HYDROcodone 325-5 MG Tab PO PRN (14:15)
--- NOTE | 2019-05-07 17:11 | PCM.PN ---
- General Info Date of Service: 05/07/19 Admission Dx/Problem (Free Text): LLE Pain Functional Status: Reports: Tolerating Diet. Denies: Pain Controlled, Ambulating - Review of Systems General: Reports: Weakness. Denies: Fever, Fatigue, Malaise HEENT: Reports: No Symptoms Pulmonary: Denies: Shortness of Breath, Cough Cardiovascular: Denies: Chest Pain, Edema, Lightheadedness Gastrointestinal: Denies: Abdominal Pain, Nausea, Vomiting Genitourinary: Reports: No Symptoms Musculoskeletal: Reports: Leg Pain Skin: Reports: No Symptoms Neurological: Reports: No Symptoms - Patient Data Vitals - Most Recent: Last Vital Signs Temp 98.6 F 05/07/19 11:19 Pulse 88 05/07/19 11:19 Resp 16 05/07/19 11:19 BP 103/49 L 05/07/19 11:19 Pulse Ox 99 05/07/19 11:19 Weight - Most Recent: 212 lb Med Orders - Current: Current Medications Acetaminophen (Tylenol Extra Strength) 1,000 mg PO Q6H PRN PRN Reason: Pain/Fever Hydrocodone Bitart/Acetaminophen ([place] 325-5 Mg) 1 tab PO Q4H PRN PRN Reason: Pain (moderate 4-6) Last Admin: 05/07/19 14:15 Dose: 1 tab Atorvastatin Calcium (Lipitor) 10 mg PO BEDTIME [facility] Last Admin: 05/06/19 20:00 Dose: 10 mg Calcium Carbonate/Glycine (Tums) 3,000 mg PO DAILY [facility] Last Admin: 05/07/19 08:41 Dose: 3,000 mg Cholecalciferol (Vitamin D3) 250 mcg PO DAILY [facility] Last Admin: 05/07/19 10:10 Dose: 250 mcg Enoxaparin Sodium (Lovenox) 40 mg SUBCUT DAILY [facility] Last Admin: 05/07/19 08:35 Dose: 40 mg Furosemide (Lasix) 40 mg PO DAILY PRN PRN Reason: Edema Gabapentin (Neurontin) 100 mg PO TID PRN PRN Reason: Other Ibuprofen (Motrin) 600 mg PO Q6H PRN PRN Reason: Pain (mild 1-3) Levothyroxine Sodium (Levothyroxine) 150 mcg PO DAILY [facility] Last Admin: 05/07/19 08:29 Dose: 150 mcg Magnesium Hydroxide (Milk Of Magnesia) 30 ml PO Q12H PRN PRN Reason: Constipation Memantine (Namenda) 5 mg PO DAILY [facility] Last Admin: 05/07/19 08:44 Dose: 5 mg Nitrofurantoin Macrocrystals (Macrobid) 100 mg PO DAILY@1999 [facility] Last Admin: 05/06/19 20:01 Dose: 100 mg Ondansetron HCl (Zofran) 4 mg IV Q6H PRN PRN Reason: Nausea/Vomiting Pantoprazole Sodium (Protonix) 40 mg PO BEDTIME [facility] Last Admin: 05/06/19 20:00 Dose: 40 mg Temazepam (Restoril) 15 mg PO BEDTIME PRN PRN Reason: Sleep Trazodone HCl (Trazodone) 50 mg PO BEDTIME [facility] Last Admin: 05/06/19 20:00 Dose: 50 mg Discontinued Medications Acetaminophen (Tylenol) 650 mg PO Q4H PRN PRN Reason: Pain (Mild 1-3)/fever Atorvastatin Calcium (Lipitor) 10 mg PO DAILY [facility] Gabapentin (Neurontin) 100 mg PO BEDTIME PRN PRN Reason: Other Magnesium Oxide (Magnesium Oxide) 250 mg PO DAILY [facility] Last Admin: 05/06/19 07:45 Dose: Not Given Memantine (Namenda) 10 mg PO DAILY [facility] Last Admin: 05/06/19 07:28 Dose: 5 mg Nitrofurantoin Macrocrystals (Macrobid) 100 mg PO DAILY [facility] Trazodone HCl (Trazodone) 50 mg PO BEDTIME PRN PRN Reason: Insomnia - Exam General: Alert, Oriented HEENT: Mucous Membr. Moist/[place] Neck: Supple Lungs: Clear to Auscultation, Normal Respiratory Effort Cardiovascular: Regular Rate, Regular Rhythm GI/Abdominal Exam: Normal Bowel Sounds, Soft, Non-Tender Extremities: Normal Inspection, Normal Range of Motion, Leg Pain Skin: Warm, Dry Neurological: No New Focal Deficit - Problem List & Annotations (1) Inability to bear weight SNOMED Code(s): 089248909 Code(s): R26.89 - OTHER ABNORMALITIES OF GAIT AND MOBILITY Status: Acute Priority: High Current Visit: Yes (2) Leg pain, left SNOMED Code(s): 528667420 Code(s): M79.605 - PAIN IN LEFT LEG Status: Acute Priority: High Current Visit: Yes - Problem List Review Problem List Initiated/Reviewed/Updated: Yes - My Orders Last 24 Hours: My Active Orders 05/07/19 09:35 Patient Status [ADT] Routine - Assessment Assessment:: LLE pain Inability to bear weight - Plan Plan:: Patient continues to complain of pain in her left leg. Has not been bearing weight on her leg. No specific injury to her leg. HAd twisted by a chair and fell back, landed on the chair. Xrays were done of her leg, knee and CT scan was done. All negative for acute concerns. Patient has required 1-2 people for any transfers, feels "leg will give out". Blood pressure stable. Will transfer to acute due to inability to care for self/ambulate. Will await PT evaluation.
[2019-05-07] MEDS: Pantoprazole 40 MG Tab.CR PO SCH (19:32)
[2019-05-07] MEDS: NITROFURANTOIN MONOHYDRATE PO SCH (19:32)
[2019-05-07] MEDS: atorvaSTATin 10 MG Tab PO SCH (19:32)
[2019-05-07] MEDS: MACROCRYSTALLINE PO SCH (19:32)
[2019-05-07] MEDS: traZODone 50 MG Tab PO SCH (19:32)
[2019-05-07] MEDS: Acetaminophen 500 MG Tab PO PRN (21:03)
[2019-05-08] MEDS: Levothyroxine 150 MCG Tab PO SCH (07:30)
[2019-05-08] MEDS: Memantine 10 MG Tab PO SCH (07:40)
[2019-05-08] MEDS: Enoxaparin 40 MG/0.4 ML Syringe SUBCUT SCH (07:41)
[2019-05-08] MEDS: Calcium Carbonate 500 MG Tab.Chew PO SCH (07:41)
[2019-05-08] MEDS: Cholecalciferol (Vitamin D3) 25 MCG Tab PO SCH (07:43)
--- NOTE | 2019-05-08 09:27 | PCM.PN ---
- General Info Date of Service: 05/08/19 Admission Dx/Problem (Free Text): LLE Pain Subjective Update: Mini is a 78 year old female who was admitted last evening with left hip pain and inability to bear weight on LLE. She reports that she continues to struggle to stand on LLE. Nursing staff report she is only able to pivot to get up to the commode. Denies any pain at rest, but significant pain when attempting to bear weight. She reports she didn't realized it last night as she was so focused on her hip, but now has been having more pain to her left lower extremity and behind her knee. She denies any lower back pain. Denies any numbness and tingling. No other complaints. Reports she otherwise is feeling well. Functional Status: Reports: Tolerating Diet, Ambulating (now starting to take 6- 8 steps with walker. Is hesitant to full weight bear on left leg. Now ambulating to the bathroom. ) - Review of Systems General: Reports: Fever, Weakness HEENT: Denies: Ear Pain, Sinus Congestion, Rhinitis Pulmonary: Denies: Shortness of Breath, Cough Cardiovascular: Reports: Edema. Denies: Chest Pain, Lightheadedness Gastrointestinal: Denies: Abdominal Pain, Nausea, Vomiting Genitourinary: Reports: No Symptoms Musculoskeletal: Reports: Leg Pain Neurological: Reports: Weakness - Patient Data Vitals - Most Recent: Last Vital Signs Temp 98.4 F 05/08/19 03:47 Pulse 90 05/07/19 23:53 Resp 18 05/07/19 23:53 BP 116/54 L 05/07/19 23:53 Pulse Ox 97 05/07/19 23:53 Weight - Most Recent: 212 lb Med Orders - Current: Current Medications Acetaminophen (Tylenol Extra Strength) 1,000 mg PO Q6H PRN PRN Reason: Pain/Fever Last Admin: 05/07/19 21:03 Dose: 1,000 mg Hydrocodone Bitart/Acetaminophen ([place] 325-5 Mg) 1 tab PO Q4H PRN PRN Reason: Pain (moderate 4-6) Last Admin: 05/07/19 14:15 Dose: 1 tab Atorvastatin Calcium (Lipitor) 10 mg PO BEDTIME [facility] Last Admin: 05/07/19 19:32 Dose: 10 mg Calcium Carbonate/Glycine (Tums) 3,000 mg PO DAILY [facility] Last Admin: 05/08/19 07:41 Dose: 3,000 mg Cholecalciferol (Vitamin D3) 250 mcg PO DAILY [facility] Last Admin: 05/08/19 07:43 Dose: 250 mcg Enoxaparin Sodium (Lovenox) 40 mg SUBCUT DAILY [facility] Last Admin: 05/08/19 07:41 Dose: 40 mg Furosemide (Lasix) 40 mg PO DAILY PRN PRN Reason: Edema Gabapentin (Neurontin) 100 mg PO TID PRN PRN Reason: Other Ibuprofen (Motrin) 600 mg PO Q6H PRN PRN Reason: Pain (mild 1-3) Levothyroxine Sodium (Levothyroxine) 150 mcg PO DAILY [facility] Last Admin: 05/08/19 07:30 Dose: 150 mcg Magnesium Hydroxide (Milk Of Magnesia) 30 ml PO Q12H PRN PRN Reason: Constipation Memantine (Namenda) 5 mg PO DAILY [facility] Last Admin: 05/08/19 07:40 Dose: 5 mg Nitrofurantoin Macrocrystals (Macrobid) 100 mg PO DAILY@1999 [facility] Last Admin: 05/07/19 19:32 Dose: 100 mg Ondansetron HCl (Zofran) 4 mg IV Q6H PRN PRN Reason: Nausea/Vomiting Pantoprazole Sodium (Protonix) 40 mg PO BEDTIME [facility] Last Admin: 05/07/19 19:32 Dose: 40 mg Temazepam (Restoril) 15 mg PO BEDTIME PRN PRN Reason: Sleep Trazodone HCl (Trazodone) 50 mg PO BEDTIME [facility] Last Admin: 05/07/19 19:32 Dose: 50 mg Discontinued Medications Acetaminophen (Tylenol) 650 mg PO Q4H PRN PRN Reason: Pain (Mild 1-3)/fever Atorvastatin Calcium (Lipitor) 10 mg PO DAILY [facility] Gabapentin (Neurontin) 100 mg PO BEDTIME PRN PRN Reason: Other Magnesium Oxide (Magnesium Oxide) 250 mg PO DAILY [facility] Last Admin: 05/06/19 07:45 Dose: Not Given Memantine (Namenda) 10 mg PO DAILY [facility] Last Admin: 05/06/19 07:28 Dose: 5 mg Nitrofurantoin Macrocrystals (Macrobid) 100 mg PO DAILY [facility] Trazodone HCl (Trazodone) 50 mg PO BEDTIME PRN PRN Reason: Insomnia - Exam General: Alert, Oriented HEENT: Mucous Membr. Moist/[place] Neck: Supple Lungs: Clear to Auscultation, Normal Respiratory Effort Cardiovascular: Regular Rate, Regular Rhythm GI/Abdominal Exam: Normal Bowel Sounds, Soft, Non-Tender Extremities: Other (JAVIER hose applied yesterday. Edema improved from yesterday. ) - Problem List & Annotations (1) Inability to bear weight SNOMED Code(s): 320494750 Code(s): R26.89 - OTHER ABNORMALITIES OF GAIT AND MOBILITY Status: Acute Priority: High Current Visit: Yes (2) Leg pain, left SNOMED Code(s): 557342520 Code(s): M79.605 - PAIN IN LEFT LEG Status: Acute Priority: High Current Visit: Yes - Problem List Review Problem List Initiated/Reviewed/Updated: Yes - My Orders Last 24 Hours: My Active Orders 05/07/19 09:35 Patient Status [ADT] Routine - Assessment Assessment:: LLE pain Inability to bear weight - Plan Plan:: Patient continues to complain of pain in her left leg. Has not been bearing weight on her leg. No specific injury to her leg. HAd twisted by a chair and fell back, landed on the chair. Xrays were done of her leg, knee and CT scan was done. All negative for acute concerns. Patient has required 1-2 people for any transfers, feels "leg will give out". Blood pressure stable. Will transfer to acute due to inability to care for self/ambulate. Will await PT evaluation. 05-08-2019 Patient is feeling better today, has less pain in her leg. Has been ambulating short distances with walker. Is still hesitant to bear full weight, worried "leg will give out". Edema in lower extremities has improved since admit, use of JAVIER hose. Did have low grade temp last night. Denies cough, shortness of breath, abdominal pain, dysuria. Will continue with PT. Obtain UA to rule out source of fever.
[2019-05-08] MEDS: Acetaminophen/HYDROcodone 325-5 MG Tab PO PRN (09:32)
[2019-05-08] MEDS: Acetaminophen 500 MG Tab PO PRN (19:38)
[2019-05-08] MEDS: NITROFURANTOIN MONOHYDRATE PO SCH (20:12)
[2019-05-08] MEDS: atorvaSTATin 10 MG Tab PO SCH (20:12)
[2019-05-08] MEDS: Pantoprazole 40 MG Tab.CR PO SCH (20:12)
[2019-05-08] MEDS: MACROCRYSTALLINE PO SCH (20:12)
[2019-05-08] MEDS: traZODone 50 MG Tab PO SCH (20:12)
[2019-05-09] MEDS: Cholecalciferol (Vitamin D3) 25 MCG Tab PO SCH (07:47)
[2019-05-09] MEDS: Enoxaparin 40 MG/0.4 ML Syringe SUBCUT SCH (07:47)
[2019-05-09] MEDS: Memantine 10 MG Tab PO SCH (07:47)
[2019-05-09] MEDS: Levothyroxine 150 MCG Tab PO SCH (07:47)
[2019-05-09] MEDS: Calcium Carbonate 500 MG Tab.Chew PO SCH (07:48)
[2019-05-09] MEDS: Acetaminophen/HYDROcodone 325-5 MG Tab PO PRN (08:40)
--- NOTE | 2019-05-09 09:11 | PCM.PN ---
- General Info Date of Service: 05/09/19 Admission Dx/Problem (Free Text): LLE Pain Functional Status: Reports: Pain Controlled, Tolerating Diet, Ambulating - Review of Systems General: Reports: Weakness HEENT: Reports: No Symptoms Pulmonary: Denies: Shortness of Breath, Cough Cardiovascular: Reports: Edema. Denies: Chest Pain, Lightheadedness Gastrointestinal: Denies: Abdominal Pain, Nausea, Vomiting Musculoskeletal: Reports: Leg Pain Skin: Reports: No Symptoms Neurological: Reports: Weakness Psychiatric: Reports: No Symptoms - Patient Data Vitals - Most Recent: Last Vital Signs Temp 98.2 F 05/09/19 08:00 Pulse 81 05/09/19 08:00 Resp 16 05/09/19 08:00 BP 119/65 05/09/19 08:00 Pulse Ox 98 05/09/19 08:00 Weight - Most Recent: 212 lb Lab Results Last 24 Hours: Laboratory Results - last 24 hr 05/08/19 Range/Units 09:55 Urine Color Yellow (YELLOW) Urine Appearance Clear (CLEAR) Urine pH 6.0 (4.5-8.0) Ur Specific [place] 1.015 (1.003-1.020) Urine Protein Negative (NEGATIVE) mg/dL Urine Glucose (UA) Negative (NEGATIVE) mg/dL Urine Ketones Negative (NEGATIVE) mg/dL Urine Occult Blood Negative (NEGATIVE) Urine Nitrite Negative (NEGATIVE) Urine Bilirubin Negative (NEGATIVE) Urine Urobilinogen 0.2 (0.2-1.0) EU/dL Ur Leukocyte Esterase Trace H (NEGATIVE) Urine RBC Not seen (0-5) /HPF Urine WBC 0-5 (0-5) /HPF Ur Epithelial Cells Few H (NOT SEEN) /HPF Urine Bacteria Moderate H (NOT SEEN) /HPF Med Orders - Current: Current Medications Acetaminophen (Tylenol Extra Strength) 1,000 mg PO Q6H PRN PRN Reason: Pain/Fever Last Admin: 05/08/19 19:38 Dose: 1,000 mg Hydrocodone Bitart/Acetaminophen ([place] 325-5 Mg) 1 tab PO Q4H PRN PRN Reason: Pain (moderate 4-6) Last Admin: 05/09/19 08:40 Dose: 1 tab Atorvastatin Calcium (Lipitor) 10 mg PO BEDTIME [facility] Last Admin: 05/08/19 20:12 Dose: 10 mg Calcium Carbonate/Glycine (Tums) 3,000 mg PO DAILY [facility] Last Admin: 05/09/19 07:48 Dose: 3,000 mg Cholecalciferol (Vitamin D3) 250 mcg PO DAILY [facility] Last Admin: 05/09/19 07:47 Dose: 250 mcg Enoxaparin Sodium (Lovenox) 40 mg SUBCUT DAILY [facility] Last Admin: 05/09/19 07:47 Dose: 40 mg Furosemide (Lasix) 40 mg PO DAILY PRN PRN Reason: Edema Gabapentin (Neurontin) 100 mg PO TID PRN PRN Reason: Other Ibuprofen (Motrin) 600 mg PO Q6H PRN PRN Reason: Pain (mild 1-3) Levothyroxine Sodium (Levothyroxine) 150 mcg PO DAILY [facility] Last Admin: 05/09/19 07:47 Dose: 150 mcg Magnesium Hydroxide (Milk Of Magnesia) 30 ml PO Q12H PRN PRN Reason: Constipation Memantine (Namenda) 5 mg PO DAILY [facility] Last Admin: 05/09/19 07:47 Dose: 5 mg Nitrofurantoin Macrocrystals (Macrobid) 100 mg PO DAILY@1999 [facility] Last Admin: 05/08/19 20:12 Dose: 100 mg Ondansetron HCl (Zofran) 4 mg IV Q6H PRN PRN Reason: Nausea/Vomiting Pantoprazole Sodium (Protonix) 40 mg PO BEDTIME [facility] Last Admin: 05/08/19 20:12 Dose: 40 mg Temazepam (Restoril) 15 mg PO BEDTIME PRN PRN Reason: Sleep Trazodone HCl (Trazodone) 50 mg PO BEDTIME [facility] Last Admin: 05/08/19 20:12 Dose: 50 mg Discontinued Medications Acetaminophen (Tylenol) 650 mg PO Q4H PRN PRN Reason: Pain (Mild 1-3)/fever Atorvastatin Calcium (Lipitor) 10 mg PO DAILY [facility] Gabapentin (Neurontin) 100 mg PO BEDTIME PRN PRN Reason: Other Magnesium Oxide (Magnesium Oxide) 250 mg PO DAILY [facility] Last Admin: 05/06/19 07:45 Dose: Not Given Memantine (Namenda) 10 mg PO DAILY [facility] Last Admin: 05/06/19 07:28 Dose: 5 mg Nitrofurantoin Macrocrystals (Macrobid) 100 mg PO DAILY [facility] Trazodone HCl (Trazodone) 50 mg PO BEDTIME PRN PRN Reason: Insomnia - Exam General: Alert, Oriented HEENT: Mucous Membr. Moist/[place] Neck: Supple Lungs: Clear to Auscultation, Normal Respiratory Effort Cardiovascular: Regular Rate, Regular Rhythm GI/Abdominal Exam: Normal Bowel Sounds, Soft, Non-Tender Extremities: Pedal Edema (1+ in lower extremities) Skin: Warm, Dry Neurological: Other (weakness now in right leg) - Problem List & Annotations (1) Inability to bear weight SNOMED Code(s): 291546725 Code(s): R26.89 - OTHER ABNORMALITIES OF GAIT AND MOBILITY Status: Acute Priority: High (2) Leg pain, left SNOMED Code(s): 215476181 Code(s): M79.605 - PAIN IN LEFT LEG Status: Acute Priority: High - Problem List Review Problem List Initiated/Reviewed/Updated: Yes - Assessment Assessment:: LLE pain Inability to bear weight - Plan Plan:: Patient continues to complain of pain in her left leg. Has not been bearing weight on her leg. No specific injury to her leg. HAd twisted by a chair and fell back, landed on the chair. Xrays were done of her leg, knee and CT scan was done. All negative for acute concerns. Patient has required 1-2 people for any transfers, feels "leg will give out". Blood pressure stable. Will transfer to acute due to inability to care for self/ambulate. Will await PT evaluation. 05-08-2019 Patient is feeling better today, has less pain in her leg. Has been ambulating short distances with walker. Is still hesitant to bear full weight, worried "leg will give out". Edema in lower extremities has improved since admit, use of JAVIER hose. Did have low grade temp last night. Denies cough, shortness of breath, abdominal pain, dysuria. Will continue with PT. Obtain UA to rule out source of fever. 05-09-2019 Patient up to bathroom this am, sitting for some time while toileting and bathing. On return to room, legs felt weak. Thought now right leg was going to give out. No longer has pain in her legs. Denies pain in her back. Admits that she does fall often due to weakness at times. Still has low grade fevers. UA shows occ bacteria, negative nitrites but unremarkable overall. Will proceed with lumbar CT. Continue PT.
[2019-05-09] MEDS: Acetaminophen 500 MG Tab PO PRN (14:02)
[2019-05-09] MEDS: MACROCRYSTALLINE PO SCH (19:52)
[2019-05-09] MEDS: Pantoprazole 40 MG Tab.CR PO SCH (19:52)
[2019-05-09] MEDS: NITROFURANTOIN MONOHYDRATE PO SCH (19:52)
[2019-05-09] MEDS: atorvaSTATin 10 MG Tab PO SCH (19:52)
[2019-05-09] MEDS: traZODone 50 MG Tab PO SCH (19:52)
[2019-05-10] MEDS: Acetaminophen 500 MG Tab PO PRN (05:50)
[2019-05-10] MEDS: Calcium Carbonate 500 MG Tab.Chew PO SCH (08:03)
[2019-05-10] MEDS: Levothyroxine 150 MCG Tab PO SCH (08:03)
[2019-05-10] MEDS: Memantine 10 MG Tab PO SCH (08:03)
[2019-05-10] MEDS: Enoxaparin 40 MG/0.4 ML Syringe SUBCUT SCH (08:03)
[2019-05-10] MEDS: Cholecalciferol (Vitamin D3) 25 MCG Tab PO SCH (08:04)
[2019-05-10 08:30] VITALS: BP 123/54
--- NOTE | 2019-05-10 21:47 | PCM.DCSUM1 ---
Discharge Summary - Hospital Course Free Text/Narrative:: Patient presented to ER with complaints of left leg pain. Had been in [place] for the day, had gone to a movie and out to eat. When arising from the chair, had instant left leg pain, fell back to the chair as unable to bear weight due to pain and felt leg was going to give out. Family assisted her to the car and she presented to our ER due to ongoing pain. No specific injury nor did she fall. Has chronic bilateral lower extremity edema, no worse on presentation. Xrays of lower leg and knee, negative. CT scan of hip done, negative. Admitted as patient unable to bear weight due to pain and inability to care for self/return home. Diagnosis: Stroke: No Modified [place] Scale: No Symptoms at All Modified [place] Scale Score: 0 - Discharge Data Discharge Date: 05/10/19 Discharge Disposition: Home, Self-Care 01 Condition: Fair - Discharge Diagnosis/Problem(s) (1) Inability to bear weight SNOMED Code(s): 115951440 ICD Code: R26.89 - OTHER ABNORMALITIES OF GAIT AND MOBILITY Status: Acute Priority: High (2) Leg pain, left SNOMED Code(s): 150419893 ICD Code: M79.605 - PAIN IN LEFT LEG Status: Acute Priority: High - Patient Summary/Data Complications: none Consults: Consultations 05/05/19 23:15 PT Evaluation and Treatment [CONS] Routine Hospital Course: Patient now doing well. Did have trouble bearing any weight on her left leg for the first 3 days here. Slowly has had resolution of the pain, able to now ambulate with walker. Did have edema in legs, caitie hose applied and it has improved. Had weakness develop in right leg yesterday, that has now resolved as well. Lumbar CT does show canal stenosis. Labs normal. Has been working with PT. PT does feel patient now able to return home. Will follow up with Dr. Beverly in 2 weeks, consideration for further vein surgery will be consulted at that visit as needs to be fully ambulatory. - Patient Instructions Diet: Usual Diet as Tolerated Activity: As Tolerated - Discharge Plan *PRESCRIPTION DRUG MONITORING PROGRAM REVIEWED*: Not Applicable *COPY OF PRESCRIPTION DRUG MONITORING REPORT IN PATIENT SHERRY: Not Applicable Home Medications: Home Meds Acetaminophen [Tylenol Extra Strength] 1,000 mg PO Q6H PRN 05/27/14 [History] Ibuprofen 800 mg PO Q6H PRN 05/27/14 [History] Multivitamin [Daily Vitamin] 3 tab PO BID 05/27/14 [History] Pantoprazole Sodium 40 mg PO BEDTIME 05/27/14 [History] Levothyroxine Sodium 150 mcg PO DAILY 12/04/15 [History] Ascorbate Calcium [Vitamin C] 1,500 mg PO DAILY 06/26/17 [History] Calcium Carbonate [Calcium] 3,000 mg PO DAILY 06/26/17 [History] Cholecalciferol (Vitamin D3) [Vitamin D3] 10,000 unit PO DAILY 06/26/17 [History ] Lutein 40 mg PO DAILY 06/26/17 [History] Vit A/C/E/Zinc/Selenium/Copper [Vision Formula Tablet] 2 tab PO BID 06/26/17 [ History] Cyanocobalamin/FA/Pyridoxine [Homocysteine Formula] 3 tab PO BID 08/29/17 [ History] Hyoscyamine Sulfate 0.125 mg SL QID 08/29/17 [History] traZODone HCl [Trazodone HCl] 50 mg PO BEDTIME 08/29/17 [History] Nitrofurantoin Monohyd/M-Cryst [Macrobid 100 mg Capsule] 100 mg PO BEDTIME 02/17 [History] Estradiol [Estrace 0.01% Vaginal Crm] 1 applic VAG Q72H 03/23/19 [History] Furosemide 40 mg PO DAILY PRN 03/23/19 [History] Gabapentin [Neurontin] 100 - 200 mg PO BEDTIME PRN 03/23/19 [History] Memantine HCl 5 mg PO DAILY 03/23/19 [History] atorvaSTATin [Lipitor] 10 mg PO BEDTIME 03/23/19 [History] Clindamycin HCl [Cleocin HCl] 300 mg PO QID 4 Days #16 capsule 03/26/19 [Rx] Forms: ED Department Discharge Referrals: Anthony Beverly MD [Primary Care Provider] - (Follow up with Dr. Beverly in 2 weeks.) - Discharge Summary/Plan Comment DC Time >30 min.: No - General Info Date of Service: 05/10/19 Admission Dx/Problem (Free Text: LLE Pain Functional Status: Reports: Pain Controlled, Tolerating Diet, Ambulating - Review of Systems General: Reports: Weakness. Denies: Fever, Fatigue, Malaise HEENT: Reports: No Symptoms Pulmonary: Denies: Shortness of Breath Cardiovascular: Reports: Edema. Denies: Chest Pain, Lightheadedness Gastrointestinal: Denies: Abdominal Pain, Nausea, Vomiting Genitourinary: Denies: Dysuria Musculoskeletal: Reports: Leg Pain Skin: Reports: No Symptoms Neurological: Reports: No Symptoms - Patient Data Vitals - Most Recent: Last Vital Signs Temp 97.7 F 05/10/19 08:00 Pulse 60 05/10/19 08:00 Resp 18 05/10/19 08:00 BP 123/54 L 05/10/19 08:00 Pulse Ox 97 05/10/19 08:00 Weight - Most Recent: 212 lb I&O - Last 24 hours: Intake & Output 05/10/19 05/10/19 05/10/19 06:59 14:59 22:59 Intake Total 480 Balance 480 Med Orders - Current: Current Medications Discontinued Medications Acetaminophen (Tylenol) 650 mg PO Q4H PRN PRN Reason: Pain (Mild 1-3)/fever Acetaminophen (Tylenol Extra Strength) 1,000 mg PO Q6H PRN PRN Reason: Pain/Fever Last Admin: 05/10/19 05:50 Dose: 1,000 mg Hydrocodone Bitart/Acetaminophen ([place] 325-5 Mg) 1 tab PO Q4H PRN PRN Reason: Pain (moderate 4-6) Last Admin: 05/09/19 08:40 Dose: 1 tab Atorvastatin Calcium (Lipitor) 10 mg PO DAILY [facility] Atorvastatin Calcium (Lipitor) 10 mg PO BEDTIME [facility] Last Admin: 05/09/19 19:52 Dose: 10 mg Calcium Carbonate/Glycine (Tums) 3,000 mg PO DAILY [facility] Last Admin: 05/10/19 08:03 Dose: 3,000 mg Cholecalciferol (Vitamin D3) 250 mcg PO DAILY [facility] Last Admin: 05/10/19 08:04 Dose: 250 mcg Enoxaparin Sodium (Lovenox) 40 mg SUBCUT DAILY [facility] Last Admin: 05/10/19 08:03 Dose: 40 mg Furosemide (Lasix) 40 mg PO DAILY PRN PRN Reason: Edema Gabapentin (Neurontin) 100 mg PO BEDTIME PRN PRN Reason: Other Gabapentin (Neurontin) 100 mg PO TID PRN PRN Reason: Other Ibuprofen (Motrin) 600 mg PO Q6H PRN PRN Reason: Pain (mild 1-3) Levothyroxine Sodium (Levothyroxine) 150 mcg PO DAILY [facility] Last Admin: 05/10/19 08:03 Dose: 150 mcg Magnesium Hydroxide (Milk Of Magnesia) 30 ml PO Q12H PRN PRN Reason: Constipation Magnesium Oxide (Magnesium Oxide) 250 mg PO DAILY [facility] Last Admin: 05/06/19 07:45 Dose: Not Given Memantine (Namenda) 10 mg PO DAILY [facility] Last Admin: 05/06/19 07:28 Dose: 5 mg Memantine (Namenda) 5 mg PO DAILY [facility] Last Admin: 05/10/19 08:03 Dose: 5 mg Nitrofurantoin Macrocrystals (Macrobid) 100 mg PO DAILY [facility] Nitrofurantoin Macrocrystals (Macrobid) 100 mg PO DAILY@1999 [facility] Last Admin: 05/09/19 19:52 Dose: 100 mg Ondansetron HCl (Zofran) 4 mg IV Q6H PRN PRN Reason: Nausea/Vomiting Pantoprazole Sodium (Protonix) 40 mg PO BEDTIME [facility] Last Admin: 05/09/19 19:52 Dose: 40 mg Temazepam (Restoril) 15 mg PO BEDTIME PRN PRN Reason: Sleep Trazodone HCl (Trazodone) 50 mg PO BEDTIME PRN PRN Reason: Insomnia Trazodone HCl (Trazodone) 50 mg PO BEDTIME [facility] Last Admin: 05/09/19 19:52 Dose: 50 mg - Exam General: Reports: Alert, Oriented HEENT: Reports: Mucous Membr. Moist/[place] Neck Neck: Reports: Supple Lungs: Reports: Clear to Auscultation, Normal Respiratory Effort Cardiovascular: Reports: Regular Rate, Regular Rhythm GI/Abdominal Exam: Normal Bowel Sounds, Soft, Non-Tender Extremities: Pedal Edema (1-2+) Skin: Reports: Warm, Dry Neurological: Reports: No New Focal Deficit
== END 2019-05-10 13:07 | disposition home or self-care (01) | DRG 556 ==
LOC: CC.ED 21:09 → CC.MS 22:31 → UNDOADMOB 22:45 → CC.MS 22:45 → OBSVTOIN 05-07 09:35
PROVIDERS: ADMIT Nurse Practitioner Family; ATTEND Family Medicine
DX: M25.552 Pain in left hip (principal); M79.605 Pain in left leg; R26.89 Other abnormalities of gait and mobility; R50.9 Fever, unspecified; H91.90 Unspecified hearing loss, unspecified ear; E89.0 Postprocedural hypothyroidism; K59.00 Constipation, unspecified; E78.00 Pure hypercholesterolemia, unspecified; G35 Multiple sclerosis; I10 Essential (primary) hypertension; K59.09 Other constipation; E03.9 Hypothyroidism, unspecified; Z79.890 Hormone replacement therapy; K21.9 Gastro-esophageal reflux disease without esophagitis; M19.90 Unspecified osteoarthritis, unspecified site; F41.9 Anxiety disorder, unspecified; Z98.49 Cataract extraction status, unspecified eye; Z90.710 Acquired absence of both cervix and uterus; Z96.643 Presence of artificial hip joint, bilateral; Z79.899 Other long term (current) drug therapy; Z98.890 Other specified postprocedural states
CPT/HCPCS: 36415; 72131; 73560-LT; 73590-LT; 73700-LT; 80048; 81001; 85025; 86140; 96372; 97116-GP; 97161-GP; 97535-GP; 99284-25; A9270-GY; G0378; J1650

== ENCOUNTER 2020-10-18 17:07 | Emergency (ER) | payer MEDICARE, BC ==
[2020-10-18 17:14] VITALS: BP 130/76; PULSE 104
--- NOTE | 2020-10-18 17:45 | EDM.PDOC ---
ED HPI GENERAL MEDICAL PROBLEM - General Chief Complaint: Back Pain or Injury Stated Complaint: fall Time Seen by Provider: 10/18/20 17:23 Source of Information: Reports: Patient History Limitations: Reports: No Limitations - History of Present Illness INITIAL COMMENTS - FREE TEXT/NARRATIVE: Anastasiya is a 79 year old female who presents to ER with complaints of right shoulder pain, right upper back and rib pain and left knee pain. Was sitting in a chair at home and the "chair collapsed underneath me and I fell". States landed hard on her right side and left knee also smashed in to the floor. Was unable to get up per self, assisted up by 4 people. Admits to pain in back/rib area with taking deep breaths. Does believe she hit her head but no loss of consciousness and she cannot find a place on her head that hurts at all. Onset: Today, Sudden Duration: Minutes:, Constant Location: Reports: Back, Upper Extremity, Right, Lower Extremity, Left Quality: Reports: Sharp, Throbbing Severity: Severe Improves with: Reports: Rest Worsens with: Reports: Movement Context: Reports: Trauma Associated Symptoms: Denies: Confusion, Chest Pain, Cough, Fever/Chills, Loss of Appetite, Nausea/Vomiting, Shortness of Breath, Syncope, Weakness Back Pain Score (Numeric/FACES): 10 - Related Data Allergies Allergy/AdvReac Type Severity Reaction Status Date / Time No Known Allergies Allergy Verified 10/18/20 17:16 Home Meds: Home Meds Acetaminophen [Tylenol Extra Strength] 1,000 mg PO Q6H PRN 05/27/14 [History] Ibuprofen 800 mg PO Q6H PRN 05/27/14 [History] Multivitamin [Daily Vitamin] 3 tab PO BID 05/27/14 [History] Pantoprazole Sodium 40 mg PO BEDTIME 05/27/14 [History] Levothyroxine Sodium 150 mcg PO DAILY 12/04/15 [History] Ascorbate Calcium [Vitamin C] 1,500 mg PO DAILY 06/26/17 [History] Calcium Carbonate [Calcium] 3,000 mg PO DAILY 06/26/17 [History] Cholecalciferol (Vitamin D3) [Vitamin D3] 10,000 unit PO DAILY 06/26/17 [History] Lutein 40 mg PO DAILY 06/26/17 [History] Vit A/C/E/Zinc/Selenium/Copper [Vision Formula Tablet] 2 tab PO BID 06/26/17 [History] Cyanocobalamin/Folic AC/Vit B6 [Homocysteine Formula] 3 tab PO BID 08/29/17 [History] Hyoscyamine Sulfate 0.125 mg SL QID 08/29/17 [History] traZODone HCl [Trazodone HCl] 50 mg PO BEDTIME 08/29/17 [History] Nitrofurantoin Monohyd/M-Cryst [Macrobid 100 mg Capsule] 100 mg PO BEDTIME 02/17/18 [History] Furosemide 40 mg PO DAILY PRN 03/23/19 [History] Gabapentin [Neurontin] 100 - 200 mg PO BEDTIME PRN 03/23/19 [History] Memantine HCl 5 mg PO DAILY 03/23/19 [History] atorvaSTATin [Lipitor] 10 mg PO BEDTIME 03/23/19 [History] estradioL [Estrace 0.01% Vaginal Crm] 1 applic VAG Q72H 03/23/19 [History] clindamycin HCL [Cleocin HCl] 300 mg PO QID 4 Days #16 capsule 03/26/19 [Rx] Past Medical History HEENT History: Reports: Hard of Hearing Cardiovascular History: Reports: High Cholesterol, Hypertension Gastrointestinal History: Reports: Chronic Constipation, Chronic Diarrhea, Colon Polyp, Diverticulosis, GERD Musculoskeletal History: Reports: Arthritis Neurological History: Reports: MS Psychiatric History: Reports: Anxiety Endocrine/Metabolic History: Reports: Hypothyroidism - Past Surgical History HEENT Surgical History: Reports: Cataract Surgery Cardiovascular Surgical History: Reports: None GI Surgical History: Reports: Colonoscopy Female Surgical History: Reports: Hysterectomy Endocrine Surgical History: Reports: Thyroidectomy Musculoskeletal Surgical History: Reports: Joint Replacement Other Musculoskeletal Surgeries/Procedures:: bilateral hip replacements about 5 and 10 years ago Social & Family History - Family History Family Medical History: No Pertinent Family History - Tobacco Use Tobacco Use Status *Q: Never Tobacco User - Caffeine Use Caffeine Use: Reports: None ED ROS GENERAL - Review of Systems Review Of Systems: See Below Constitutional: Denies: Fever, Chills, Malaise, Weakness, Decreased Appetite HEENT: Denies: Ear Discharge, Ear Pain, Nosebleed, Rhinitis, Throat Pain Respiratory: Denies: Shortness of Breath, Cough Cardiovascular: Denies: Chest Pain, Edema, Lightheadedness Endocrine: Denies: Fatigue GI/Abdominal: Denies: Abdominal Pain, Nausea, Vomiting : Reports: No Symptoms Musculoskeletal: Reports: Shoulder Pain, Back Pain, Joint Pain. Denies: Neck Pain Skin: Reports: No Symptoms Neurological: Reports: No Symptoms ED EXAM, GENERAL - Physical Exam Exam: See Below Exam Limited By: No Limitations General Appearance: Alert, WD/WN, Moderate Distress Eye Exam: Bilateral Eye: EOMI Ears: Normal External Exam, Normal TMs Nose: Normal Inspection, Normal Mucosa, No Blood Throat/Mouth: Normal Inspection, Normal Oropharynx Head: Normocephalic Neck: Normal Inspection, Supple, Non-Tender Respiratory/Chest: No Respiratory Distress, Lungs Clear, Normal Breath Sounds Cardiovascular: Regular Rate, Rhythm GI/Abdominal: Normal Bowel Sounds, Soft, Non-Tender Back Exam: Other (tender to right scapular area, no bruising noted) Extremities: Other (patient tender to posterior right shoulder, mild abrasion and redness noted. Able to abduct/adduct shoulder joint. Strength is good. Goodf left knee range of motion, is able to stand and walk on left leg.) Neurological: Alert, Oriented Course - Vital Signs Last Recorded V/S: Last Vital Signs Temp 97.6 F 10/18/20 17:07 Pulse 104 H 10/18/20 17:07 Resp 20 10/18/20 17:07 BP 130/76 10/18/20 17:07 Pulse Ox 99 10/18/20 17:07 - Orders/Labs/Meds Orders: Active Orders 24 hr Category Date Time Status Ribs 2V w Chest Rt [CR] Stat Exams 10/18/20 17:29 Ordered Shoulder Comp Rt [CR] Stat Exams 10/18/20 17:29 Ordered - Re-Assessments/Exams Free Text/Narrative Re-Assessment/Exam: 10/18/20 18:12 Xrays of right shoulder, chest and ribs appear negative for acute concerns. 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 Discussed need for pain medications. Often only uses occasional tylenol, "don't want anything too strong". Departure - Departure Time of Disposition: 18:13 Disposition: Home, Self-Care 01 Condition: Good Clinical Impression: Shoulder contusion, Rib pain on right side - Discharge Information *PRESCRIPTION DRUG MONITORING PROGRAM REVIEWED*: No *COPY OF PRESCRIPTION DRUG MONITORING REPORT IN PATIENT SHERRY: No Instructions: Contusion, [id number] Referrals: PCP,None [Primary Care Provider] - Forms: ED Department Discharge Additional Instructions: 1. Rest 2. Ice to affected areas frequently tonight 3. Tylenol 650 mg every 6 hours for pain 4. Tramadol 50 mg one tab every 6 hours as needed for worse pain 5. Return if increasing pain, shortness of breath or follow up with your primary care provider for persisting concerns. Sepsis Event Note (ED) - Evaluation Sepsis Screening Result: No Definite Risk - Focused Exam Vital Signs: Vital Signs Temp Pulse Resp BP Pulse Ox 10/18/20 17:07 97.6 F 104 H 20 130/76 99 - My Orders Last 24 Hours: My Active Orders 10/18/20 17:29 Ribs 2V w Chest Rt [CR] Stat Shoulder Comp Rt [CR] Stat - Assessment/Plan Last 24 Hours: My Active Orders 10/18/20 17:29 Ribs 2V w Chest Rt [CR] Stat Shoulder Comp Rt [CR] Stat
[2020-10-18] MEDS ORDERED: traMADol 50 MG Tab ONE (18:00)
[2020-10-18] MEDS: Take Home: traMADol 50 MG, 4 Tab Pack PO ONE (18:20)
== END 2020-10-18 18:31 | disposition home or self-care (01) ==
LOC: CC.ED 17:07
DX: S40.011A Contusion of right shoulder, initial encounter (principal); R07.81 Pleurodynia; M54.6 Pain in thoracic spine; M25.561 Pain in right knee; I10 Essential (primary) hypertension; E78.00 Pure hypercholesterolemia, unspecified; K21.9 Gastro-esophageal reflux disease without esophagitis; E03.9 Hypothyroidism, unspecified; Z79.899 Other long term (current) drug therapy; W07.XXXA Fall from chair, initial encounter; Y92.009 Unspecified place in unspecified non-institutional (private) residence as the place of occurrence of the external cause
CPT/HCPCS: 71101; 73030; 99283; A9270

== ENCOUNTER 2020-10-19 01:06 | Emergency (ER) | payer MEDICARE, BC ==
[2020-10-19] MEDS ORDERED: fentaNYL 50 MCG/ML SDV IVPUSH ONE ×3 (01:50→06:20)
[2020-10-19 02:24] VITALS: BP 122/65; PULSE 112
--- NOTE | 2020-10-19 02:43 | EDM.PDOC ---
ED HPI GENERAL MEDICAL PROBLEM - General Chief Complaint: General Stated Complaint: ?pneumo Time Seen by Provider: 10/19/20 01:50 Source of Information: Reports: Patient History Limitations: Reports: No Limitations - History of Present Illness INITIAL COMMENTS - FREE TEXT/NARRATIVE: Anastasiya is a 79 year old female who was asked to return back to the ER after received call from radiologist with earlier chest xray report. Was noted to have 5th rib fracture and a small pneumothorax. This provider spoke then with ER physician at [facility] who recommended she return and have CT scan. Patient called at home and requested her to be reevaluated in ER. She denies shortness of breath. States pain is better than earlier as she has been taking tylenol, not taking the pain medication she was given here from the ER. Has been resting in the recliner at home. Does still have some right upper back pain. Shoulder pain is better. Onset: Gradual Duration: Hour(s): Location: Reports: Back, Upper Extremity, Right Quality: Reports: Ache Severity: Moderate Improves with: Reports: Rest Worsens with: Reports: Movement Context: Reports: Trauma Associated Symptoms: Denies: Confusion, Chest Pain, Cough, Fever/Chills, Headaches, Nausea/Vomiting, Shortness of Breath Treatments MFTS: Reports: Acetaminophen Right Chest Pain Score (Numeric/FACES): 4 - Related Data Allergies Allergy/AdvReac Type Severity Reaction Status Date / Time No Known Allergies Allergy Verified 10/19/20 01:49 Home Meds: Home Meds Acetaminophen [Tylenol Extra Strength] 1,000 mg PO Q6H PRN 05/27/14 [History] Ibuprofen 800 mg PO Q6H PRN 05/27/14 [History] Multivitamin [Daily Vitamin] 3 tab PO BID 05/27/14 [History] Pantoprazole Sodium 40 mg PO BEDTIME 05/27/14 [History] Levothyroxine Sodium 150 mcg PO DAILY 12/04/15 [History] Ascorbate Calcium [Vitamin C] 1,500 mg PO DAILY 06/26/17 [History] Calcium Carbonate [Calcium] 3,000 mg PO DAILY 06/26/17 [History] Cholecalciferol (Vitamin D3) [Vitamin D3] 10,000 unit PO DAILY 06/26/17 [History] Lutein 40 mg PO DAILY 06/26/17 [History] Vit A/C/E/Zinc/Selenium/Copper [Vision Formula Tablet] 2 tab PO BID 06/26/17 [History] Cyanocobalamin/Folic AC/Vit B6 [Homocysteine Formula] 3 tab PO BID 08/29/17 [History] Hyoscyamine Sulfate 0.125 mg SL QID 08/29/17 [History] traZODone HCl [Trazodone HCl] 50 mg PO BEDTIME 08/29/17 [History] Nitrofurantoin Monohyd/M-Cryst [Macrobid 100 mg Capsule] 100 mg PO BEDTIME 02/17/18 [History] Furosemide 40 mg PO DAILY PRN 03/23/19 [History] Gabapentin [Neurontin] 100 - 200 mg PO BEDTIME PRN 03/23/19 [History] Memantine HCl 5 mg PO DAILY 03/23/19 [History] atorvaSTATin [Lipitor] 10 mg PO BEDTIME 03/23/19 [History] estradioL [Estrace 0.01% Vaginal Crm] 1 applic VAG Q72H 03/23/19 [History] clindamycin HCL [Cleocin HCl] 300 mg PO QID 4 Days #16 capsule 03/26/19 [Rx] Past Medical History HEENT History: Reports: Hard of Hearing Cardiovascular History: Reports: High Cholesterol, Hypertension Gastrointestinal History: Reports: Chronic Constipation, Chronic Diarrhea, Colon Polyp, Diverticulosis, GERD Musculoskeletal History: Reports: Arthritis Neurological History: Reports: MS Psychiatric History: Reports: Anxiety Endocrine/Metabolic History: Reports: Hypothyroidism - Past Surgical History HEENT Surgical History: Reports: Cataract Surgery Cardiovascular Surgical History: Reports: None GI Surgical History: Reports: Colonoscopy Female Surgical History: Reports: Hysterectomy Endocrine Surgical History: Reports: Thyroidectomy Musculoskeletal Surgical History: Reports: Joint Replacement Other Musculoskeletal Surgeries/Procedures:: bilateral hip replacements about 5 and 10 years ago Social & Family History - Family History Family Medical History: No Pertinent Family History - Tobacco Use Tobacco Use Status *Q: Never Tobacco User Second Hand Smoke Exposure: No - Caffeine Use Caffeine Use: Reports: None ED ROS GENERAL - Review of Systems Review Of Systems: See Below Constitutional: Denies: Fever, Chills, Malaise, Weakness, Fatigue HEENT: Denies: Ear Pain, Throat Pain Respiratory: Denies: Shortness of Breath, Cough Cardiovascular: Denies: Chest Pain, Edema, Lightheadedness Endocrine: Denies: Fatigue GI/Abdominal: Denies: Abdominal Pain, Nausea, Vomiting : Reports: No Symptoms Musculoskeletal: Reports: Shoulder Pain Skin: Reports: Bruising Neurological: Reports: No Symptoms ED EXAM, GENERAL - Physical Exam Exam: See Below Exam Limited By: No Limitations General Appearance: Alert, WD/WN, No Apparent Distress Ears: Normal External Exam, Normal TMs Nose: Normal Inspection, Normal Mucosa, No Blood Throat/Mouth: Normal Inspection, Normal Oropharynx Head: Normocephalic Neck: Normal Inspection, Supple, Non-Tender Respiratory/Chest: No Respiratory Distress, Crackles (right upper lobe, not present earlier) Cardiovascular: Tachycardia GI/Abdominal: Normal Bowel Sounds, Soft, Non-Tender Extremities: Normal Range of Motion Neurological: Alert, Oriented Skin Exam: Warm, Dry, Ecchymosis (right shoulder) Course - Vital Signs Last Recorded V/S: Last Vital Signs Temp 99 F 10/19/20 02:06 Pulse 112 H 10/19/20 02:06 Resp 18 10/19/20 02:06 BP 122/65 10/19/20 02:06 Pulse Ox 96 10/19/20 02:06 - Orders/Labs/Meds Orders: Active Orders 24 hr Category Date Time Status Chest 1V Frontal [CR] Stat Exams 10/19/20 04:02 Ordered Chest wo Cont [CT] Stat Exams 10/19/20 01:43 Taken Sodium Chloride 0.9% [Normal Saline] 250 ml Med 10/19/20 04:15 Active IV ASDIRECTED Medication Orders Sodium Chloride (Normal Saline) 250 mls @ 50 mls/hr IV ASDIRECTED [facility] Meds: Medications Generic Name Dose Route Start Last Admin Trade Name Freq PRN Reason Stop Dose Admin Sodium Chloride 250 mls @ 50 mls/hr 10/19/20 04:15 Normal Saline IV ASDIRECTED NOLAN Discontinued Medications Generic Name Dose Route Start Last Admin Trade Name Freq PRN Reason Stop Dose Admin Fentanyl 25 mcg 10/19/20 01:50 10/19/20 01:56 Fentanyl IVPUSH 10/19/20 01:51 25 mcg ONETIME ONE Administration Fentanyl 25 mcg 10/19/20 03:05 Fentanyl IVPUSH 10/19/20 03:06 ONETIME ONE Fentanyl Confirm 10/19/20 03:27 Fentanyl Administered 10/19/20 03:28 Dose 50 mcg .ROUTE .STK-MED ONE Hydromorphone HCl 1 mg 10/19/20 04:12 Dilaudid IVPUSH 10/19/20 04:13 ONETIME ONE Lidocaine HCl 5 ml 10/19/20 03:05 Xylocaine-Mpf 1% INJECT 10/19/20 03:06 ONETIME ONE Lidocaine HCl Confirm 10/19/20 03:05 Xylocaine 2% Administered 10/19/20 03:06 Dose 20 ml .ROUTE .STK-MED ONE Midazolam HCl Confirm 10/19/20 03:09 Versed 1 Mg/Ml Administered 10/19/20 03:10 Dose 2 mg .ROUTE .STK-MED ONE - Re-Assessments/Exams Free Text/Narrative Re-Assessment/Exam: 10/19/20 0240-CT done. contacted [facility] and spoke with Dr. Wood. Did agree to accept the patient in transfer but suggested chest tube placement prior to transfer. 0300-Contacted [facility], unable to fly. Called Dr. Beverly who agreed to assist with chest tube placement. 0400-Right axilla cleansed with betadine. Lidocaine injected to skin and deeper to rib space. Puncture area made with benson clamp. 28 sudanese chest tube inserted with air returns. Sutured in place per Dr. Beverly and tube connected to water seal. patient was given Fentanyl and 2 mg of Versed for procedure. Did tolerate well. ALS ambulance paged for transfer to [place]. 0430-repeat chest xay done, will forward to [facility]. Risks and benefits of transfer discussed with patient and . Risks of transfer include worsening status, vehicle crash or . Benefits of transfer include more specialized care for pneumothorax. Risks of non transfer include worsening status, possible . Benefits of non transfer include care close to home. Patient agrees to transfer. 0430-Dilaudid given for pain. Patient is resting comfortably, sats 98%. Departure - Departure Time of Disposition: 04:32 Disposition: DC/Tfer to Acute Hospital 02 Condition: Fair Clinical Impression: Pneumothorax, Fracture, rib - Discharge Information *PRESCRIPTION DRUG MONITORING PROGRAM REVIEWED*: No *COPY OF PRESCRIPTION DRUG MONITORING REPORT IN PATIENT SHERRY: No Forms: ED Department Discharge Additional Instructions: Transfer ALS to [facility] to Dr. Wood Sepsis Event Note (ED) - Evaluation Sepsis Screening Result: No Definite Risk - Focused Exam Vital Signs: Vital Signs Temp Pulse Resp BP Pulse Ox 10/19/20 02:06 99 F 112 H 18 122/65 96 - My Orders Last 24 Hours: My Active Orders 10/19/20 01:43 Chest wo Cont [CT] Stat 10/19/20 04:02 Chest 1V Frontal [CR] Stat 10/19/20 04:15 Sodium Chloride 0.9% [Normal Saline] 250 ml IV ASDIRECTED - Assessment/Plan Last 24 Hours: My Active Orders 10/19/20 01:43 Chest wo Cont [CT] Stat 10/19/20 04:02 Chest 1V Frontal [CR] Stat 10/19/20 04:15 Sodium Chloride 0.9% [Normal Saline] 250 ml IV ASDIRECTED
[2020-10-19] MEDS ORDERED: Lidocaine 2% 20 ML MDV ONE (03:05)
[2020-10-19] MEDS ORDERED: Midazolam 1 MG/ML 2 ML SDV ONE (03:09)
[2020-10-19] MEDS ORDERED: fentaNYL 50 MCG/ML SDV ONE (03:27)
[2020-10-19] MEDS ORDERED: HYDROmorphone 1 MG/ML Syringe IVPUSH ONE (04:12)
[2020-10-19] MEDS ORDERED: Sodium Chloride 0.9% 250 ML IV SCH (04:15)
[2020-10-19] MEDS ORDERED: Midazolam 1 MG/ML 2 ML SDV IVPUSH ONE (06:21)
[2020-10-19] MEDS ORDERED: Lidocaine 2% 20 ML MDV INJECT ONE (06:24)
== END 2020-10-19 05:15 ==
LOC: CC.ED 01:50
DX: S27.0XXA Traumatic pneumothorax, initial encounter (principal); S22.31XA Fracture of one rib, right side, initial encounter for closed fracture; X58.XXXA Exposure to other specified factors, initial encounter
CPT/HCPCS: 32551; 71045; 71250; 96374; 99284; 99285-25; J1170; J2250; J3010

== ENCOUNTER 2022-09-07 11:26 | Emergency (ER) | payer MEDICARE, BC ==
[2022-09-07 11:36] VITALS: BP 105/51; PULSE 75
== END 2022-09-07 13:25 | disposition home or self-care (01) ==
LOC: CC.ED 11:26
DX: I95.9 Hypotension, unspecified (principal); E86.1 Hypovolemia; E78.00 Pure hypercholesterolemia, unspecified; I10 Essential (primary) hypertension; Z79.899 Other long term (current) drug therapy; Z90.710 Acquired absence of both cervix and uterus
CPT/HCPCS: 36415; 71046; 80053; 83735; 84484; 85025; 99284

== ENCOUNTER 2025-07-04 10:34 | Emergency (ER) | payer MEDICARE, BC ==
[2025-07-04 12:00] LABS: APPEARANCE,URINE CLEAR (CLEAR); GLUCOSE,URINE NEGATIVE (NEGATIVE); OCCULT BLOOD,URINE NEGATIVE (NEGATIVE)
[2025-07-04 18:33] VITALS: BP 107/62; PULSE 120
== END 2025-07-04 18:29 ==
LOC: CC.ED 10:34
DX: S72.352A Displaced comminuted fracture of shaft of left femur, initial encounter for closed fracture (principal); M97.02XA Periprosthetic fracture around internal prosthetic left hip joint, initial encounter; I10 Essential (primary) hypertension; E78.00 Pure hypercholesterolemia, unspecified; K21.9 Gastro-esophageal reflux disease without esophagitis; E03.9 Hypothyroidism, unspecified; Z90.710 Acquired absence of both cervix and uterus; Z79.899 Other long term (current) drug therapy; W01.0XXA Fall on same level from slipping, tripping and stumbling without subsequent striking against object, initial encounter
CPT/HCPCS: 81003; 96374; 96376; 99285-25; J1171

== ENCOUNTER 2025-07-15 20:30 | Observation (INO) | payer MEDICARE, BC ==
[2025-07-15 21:05] LABS: BASOPHILS ABSOLUTE AUTO 0.08 10^3/uL (0.00-0.50); BASOPHILS PERCENT AUTO 0.6 % (0-1); EOSINOPHILS ABSOLUTE AUTO 0.57 10^3/uL (0.00-1.50); EOSINOPHILS PERCENT AUTO 4.0 % (0-6); IMMATURE GRAN ABSOLUTE AUTO 0.59 10^3/uL (0.00-0.49); IMMATURE GRAN PERCENT AUTO 4.2 % (0.0-4.9); LYMPHOCYTES ABSOLUTE AUTO 2.31 10^3/uL (0.60-5.00); LYMPHOCYTES PERCENT AUTO 16.3 % (24-44); MONOCYTES ABSOLUTE AUTO 1.12 10^3/uL (0.00-1.50); MONOCYTES PERCENT AUTO 7.9 % (0-10); NEUTROPHILS ABSOLUTE AUTO 9.54 x10^3/uL (1.80-8.00); NEUTROPHILS PERCENT AUTO 67.0 % (41-71); PLATELET COUNT,PLT 500 10^3/uL (150-400); RED BLOOD CELL COUNT 2.86 x10^6/uL (4.00-5.50); WHITE BLOOD CELL COUNT,WBC 14.2 10^3/uL (4.0-11.0)
[2025-07-15 21:15] LABS: ALANINE AMINOTRANSFERASE,ALT 24.0 U/L (12-78); ASPARTATE AMNIOTRANSFERASE,AST 20.0 U/L (15-37); BILIRUBIN TOTAL 0.5 mg/dL (0.0-1.0); BLOOD UREA NITROGEN,BUN 19.0 mg/dL (7-18); CARBON DIOXIDE,CO2 23.0 mmol/L (21-32); CHLORIDE,CL 107.0 mEq/L (98-106); CREATININE 0.9 mg/dL (0.6-1.0); EST CRCL DRUG DOSING (CG) 39.87 mL/min; GLUCOSE RANDOM 108.0 mg/dL (75-99); POTASSIUM,K 4.0 mEq/L (3.5-5.0); PROTEIN TOTAL,TP 5.8 g/dL (6.4-8.2); SODIUM,NA 143.0 mEq/L (136-145)
[2025-07-15 21:16] LABS: ESTIMATED GFR 64.0 mL/min (>=60)
[2025-07-15 21:18] LABS: INR 1.01 (0.92-1.18); PTT,PARTIAL THROMBOPLSTIN TIME 28.0 SEC (20.0-30.0)
[2025-07-15] MEDS ORDERED: Ondansetron 4 MG/2 ML SDV IV PRN (22:07)
[2025-07-15] MEDS ORDERED: Ondansetron 4 MG Tab.DIS PO PRN (22:07)
[2025-07-15] MEDS ORDERED: Sodium Chloride 0.9% 10 ML Syringe FLUSH PRN (22:07)
[2025-07-16 07:25] LABS: ALANINE AMINOTRANSFERASE,ALT 20.0 U/L (12-78); ASPARTATE AMNIOTRANSFERASE,AST 20.0 U/L (15-37); BILIRUBIN TOTAL 0.5 mg/dL (0.0-1.0); BLOOD UREA NITROGEN,BUN 20.0 mg/dL (7-18); CARBON DIOXIDE,CO2 26.0 mmol/L (21-32); CHLORIDE,CL 108.0 mEq/L (98-106); CREATININE 0.8 mg/dL (0.6-1.0); EST CRCL DRUG DOSING (CG) 44.85 mL/min; GLUCOSE RANDOM 102.0 mg/dL (75-99); POTASSIUM,K 4.2 mEq/L (3.5-5.0); PROTEIN TOTAL,TP 5.5 g/dL (6.4-8.2); SODIUM,NA 143.0 mEq/L (136-145)
[2025-07-16 07:33] LABS: ESTIMATED GFR 74.0 mL/min (>=60)
[2025-07-16 07:47] LABS: BASOPHILS ABSOLUTE AUTO 0.10 10^3/uL (0.00-0.50); BASOPHILS PERCENT AUTO 0.6 % (0-1); EOSINOPHILS ABSOLUTE AUTO 0.68 10^3/uL (0.00-1.50); EOSINOPHILS PERCENT AUTO 4.1 % (0-6); IMMATURE GRAN ABSOLUTE AUTO 0.66 10^3/uL (0.00-0.49); IMMATURE GRAN PERCENT AUTO 4.0 % (0.0-4.9); LYMPHOCYTES ABSOLUTE AUTO 2.03 10^3/uL (0.60-5.00); LYMPHOCYTES PERCENT AUTO 12.3 % (24-44); MONOCYTES ABSOLUTE AUTO 1.33 10^3/uL (0.00-1.50); MONOCYTES PERCENT AUTO 8.1 % (0-10); NEUTROPHILS ABSOLUTE AUTO 11.68 x10^3/uL (1.80-8.00); NEUTROPHILS PERCENT AUTO 70.9 % (41-71); PLATELET COUNT,PLT 522 10^3/uL (150-400); RED BLOOD CELL COUNT 2.75 x10^6/uL (4.00-5.50); WHITE BLOOD CELL COUNT,WBC 16.5 10^3/uL (4.0-11.0)
[2025-07-16] MEDS: Cholecalciferol (Vitamin D3) 25 MCG Tab PO SCH (07:56)
[2025-07-16] MEDS: Calcium Carbonate/Vitamin D3 1250 MG-5 MCG Tab PO SCH (07:56)
[2025-07-16] MEDS: Beta-Carotene (Vitamin A) w/Vitamin C & E plus Minerals Tab PO SCH (07:56)
[2025-07-16] MEDS: Calcium Carbonate/Magnesium Oxide/Zinc Oxide Tab PO SCH (07:57)
[2025-07-16] MEDS ORDERED: LEVOTHYROXINE SODIUM 25 MCG PO SCH (08:00)
[2025-07-16] MEDS ORDERED: LUTEIN 20 MG PO SCH (08:00)
[2025-07-16] MEDS: Nitrofurantoin Monohydrate/Macrocrystalline 100 MG Cap PO SCH (08:50)
[2025-07-16] MEDS: Hyoscyamine 0.125 MG Tab.SL SL SCH (09:10)
[2025-07-16 10:58] LABS: APPEARANCE,URINE CLEAR (CLEAR); GLUCOSE,URINE NEGATIVE (NEGATIVE); OCCULT BLOOD,URINE NEGATIVE (NEGATIVE)
[2025-07-16 11:06] LABS: EPITHELIAL CELLS,URINE OCCASIONAL /HPF (NOT SEEN)
[2025-07-17 07:28] LABS: PLATELET COUNT,PLT 469 10^3/uL (150-400); RED BLOOD CELL COUNT 2.70 x10^6/uL (4.00-5.50); WHITE BLOOD CELL COUNT,WBC 14.6 10^3/uL (4.0-11.0)
[2025-07-17 07:49] LABS: ALANINE AMINOTRANSFERASE,ALT 16.0 U/L (12-78); ASPARTATE AMNIOTRANSFERASE,AST 19.0 U/L (15-37); BILIRUBIN TOTAL 0.5 mg/dL (0.0-1.0); BLOOD UREA NITROGEN,BUN 22.0 mg/dL (7-18); CARBON DIOXIDE,CO2 28.0 mmol/L (21-32); CHLORIDE,CL 107.0 mEq/L (98-106); CREATININE 0.7 mg/dL (0.6-1.0); EST CRCL DRUG DOSING (CG) 51.26 mL/min; GLUCOSE RANDOM 88.0 mg/dL (75-99); POTASSIUM,K 4.1 mEq/L (3.5-5.0); PROTEIN TOTAL,TP 5.5 g/dL (6.4-8.2); SODIUM,NA 142.0 mEq/L (136-145)
[2025-07-17 07:54] LABS: ESTIMATED GFR 86.0 mL/min (>=60)
[2025-07-17 08:08] LABS: EOSINOPHILS ABSOLUTE MAN 0.73 10^3/uL (0.00-0.45); EOSINOPHILS PERCENT MAN 5 % (0-5); LYMPHOCYTES ABSOLUTE MAN 2.48 10^3/uL (1.00-4.80); LYMPHOCYTES PERCENT MAN 17 % (21-55); MONOCYTES ABSOLUTE MAN 1.75 10^3/uL (0.00-0.80); MONOCYTES PERCENT MAN 12 % (2-12); NEUTROPHILS ABSOLUTE MAN 9.64 10^3/uL (1.80-7.00); SEG NEUTROPHILS PERCENT MAN 66 % (35-85)
[2025-07-17] MEDS: Acetaminophen/HYDROcodone 325-5 MG Tab PO ONE (11:40)
[2025-07-17 11:51] VITALS: BP 122/64; PULSE 93
== END 2025-07-17 12:20 | disposition home or self-care (01) ==
LOC: CC.ED 20:30 → CC.MS 21:45
PROVIDERS: ADMIT Physician Assistant Medical; ATTEND Physician Assistant Medical
DX: K62.5 Hemorrhage of anus and rectum (principal); I10 Essential (primary) hypertension; E78.00 Pure hypercholesterolemia, unspecified; E03.9 Hypothyroidism, unspecified; Z79.890 Hormone replacement therapy; Z79.899 Other long term (current) drug therapy
CPT/HCPCS: 36415; 80053; 81001; 85025; 85610; 85730; 86140; 99223; 99231; 99239; 99285; A9270-GY; G0378